=== PATIENT | female | born 1950 | race Caucasian/White ===

== ENCOUNTER 2020-10-24 09:16 | Outpatient (REF) | payer OTHER, SELFPAY ==
--- NOTE | 2020-10-24 09:36 | MHC.AU.P13 ---
Hearing Instrument Maintenance Date of Visit: 10/24/20 Right Ear: [employer] Agent Team Member: [employer] Model: OPN 3 miniRITE T Serial Number: [id number] Repair Warranty: Loss and Damage Warranty: Battery Size: 312 Type of Dome: 8mm closed Follow-Up Summary: Right aid brought in for cleaning. Cleaned aid, changed wax guard, 8mm closed dome, and retention tail - amplifying clearly. Recommendations: Recommendations: Hearing instrument follow-up or maintenance as needed. Signature: Provider: MICHAEL Meade
== END 2020-10-24 09:17 | disposition home or self-care (01) ==
LOC: HO.HAP 09:16
PROVIDERS: Visit Provider Internal Medicine
DX: Z46.1 Encounter for fitting and adjustment of hearing aid (principal); H90.5 Unspecified sensorineural hearing loss
CPT/HCPCS: V5266

== ENCOUNTER 2020-10-24 09:32 | Outpatient (REF) | payer SELFPAY | END 2020-10-24 09:33 | disposition home or self-care (01) | LOC: HO.HAP 09:32 | PROVIDERS: Visit Provider Internal Medicine | DX: Z46.1 Encounter for fitting and adjustment of hearing aid (principal); H90.3 Sensorineural hearing loss, bilateral | CPT/HCPCS: V5267 ==

== ENCOUNTER 2020-11-11 08:19 | Outpatient (REF) | payer OTHER, SELFPAY ==
--- NOTE | 2020-11-11 11:32 | MHC.AU.AHA ---
Adult Audiological Evaluation Date of Visit: 11/11/20 Reason for Appointment: Audiological re-evaluation to monitor the status of Ms. Dey's hearing loss. She has a known bilateral, asymmetrical hearing loss with the left ear hearing worse than the right. She uses a hearing aid in the right ear only. She notes that her hearing seems to be gradually decreasing and she notes difficulties hearing the television. Change to her medical history included new medications for restless leg syndrome. Previous Hearing Test Results: [facility], 07/07/2019- Borderline normal to mild hearing loss through 4000 Hz, dropping to a severe hearing loss at 8000 Hz in the right ear. Mild steeply sloping to profound mixed hearing loss in the left ear. Ear History: Ear Infections in Childhood: Both Ears Bothersome Tinnitus/Ringing/Noises in Ears: Intermittent, not typically bothersome Medical History: Medical History: Heart Problems, High Blood Pressure, Stroke Medical History: Heart problems with surgery for dual pacemaker, kidney disease with history of renal failure, two strokes, sinus problems, restless leg syndrome. Allergies: Diltiazem HCl, NSAIDs, pumpkins, strawberries, sulfa drugs Medication List: Reports new medications for restless leg syndrome. Takes Claritin, an inhaler, and nasal spray for sinus problems. Hearing Instrument History- Right Ear: Information Systems Project Manager: [employer] Model: OPN 3 miniRITE T Serial Number: [id number] Battery Size: 312 Repair Warranty: Loss and Damage Warranty: Dispensed By: Dr. Jayshree Inman's office Date of Fitting: ~2017 Otoscopy: Right Ear: Unremarkable Left Ear: Unremarkable Tympanometry: Tympanometry performed due to: Conductive component found in audiometric results Right Ear: Normal Middle Ear System (Type A) Left Ear: Hypercompliant Middle Ear System (Type Ad) Hearing Evaluation: Transducer(s) Used: Insert Earphones, Bone Conduction Method: Conventional Audiometry Stimuli Used: Pure Tones Right Ear: Description of Hearing: Normal hearing at 250-500 Hz, 3775-9027 Hz, and 3000 Hz. Mild sensorineural hearing loss at 750, 2000, and 4000 Hz, steeply sloping to a moderate hearing loss at 6000 Hz and a severe hearing loss at 8000 Hz. Left Ear: Description of Hearing: Normal hearing at 250 Hz. Mild sensorineural hearing loss at 500 Hz, steeply sloping to a severe hearing loss at 750 Hz and a profound mixed hearing loss from 7718-9587 Hz. Speech Recognition Threshold (SRT): Method Used: Monitored Live Voice Stimuli Used: Spondee Words Right Ear: 25 dBHL Left Ear: 75 dBHL with effective masking Word Discrimination: Method: Recorded Lists Word Lists Used: NU-6 Right Ear: 96% at 65 dBHL Left Ear: Attempted at 95 dBHL with masking, 0/10 correct Comparison: Compared to most recent evaluation: Slight 5-10 dBHL decreases in hearing in the right ear. Recommendations: Audiological re-evaluation in one year. Hearing aid(s) reprogrammed with updated test results. Diagnosis: Primary Diagnosis: H90.3 Bilateral Sensorineural Hearing Loss Services Performed: Comprehensive Audiological Evaluation (CPT 89014) Tympanometry (CPT 78134) Signature: Provider: Trevon Germain, CCC-A
== END 2020-11-11 08:20 | disposition home or self-care (01) ==
LOC: HO.SH 08:19
PROVIDERS: Visit Provider Internal Medicine
DX: H90.3 Sensorineural hearing loss, bilateral (principal)
CPT/HCPCS: 92557; 92567; 92592

== ENCOUNTER 2024-05-22 09:14 | Outpatient (AMB) | payer OTHER, SELFPAY ==
--- NOTE | 2024-05-22 09:18 | HO.SPINEOV ---
Vital Signs 05/22/24 10:03 Height 5 ft 3 in Weight 173 lb BMI 30.6 Intake Visit Reasons: LBP Intake Note: Ms. Dey is here today c/o low back pain that radiates down to the legs. 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 Allergies NSAIDS (Non-Steroidal Anti-Inflamma Allergy (Severe, Verified 05/22/24 10:08) Unresponsive Diltiazem HCl Allergy (Unknown, Uncoded 05/22/24 10:08) Unknown nsaids Allergy (Unknown, Uncoded 05/22/24 10:08) Unknown pumpkins Allergy (Unknown, Uncoded 05/22/24 10:08) Unknown strawberries Allergy (Unknown, Uncoded 05/22/24 10:08) Unknown sulfa trimeth ds tablets Allergy (Unknown, Uncoded 05/22/24 10:08) Unknown Physical Exam Vital Signs: BMI result Body Mass Index 30.6 Assessment & Plan Assessment & Plan (1) Chronic SI joint pain: Code(s): M53.3 - Sacrococcygeal disorders, not elsewhere classified; G89.29 - Other chronic pain Category: Medical Plan Dear Dr Paris, Thank you for referring Mrs Dey to our office today. She is a very nice 73-year-old female with history of longstanding pain in her left buttock which radiates around her hip into her anterior groin. It all started when she had her hip replaced about 30 or 40 years ago. After that surgery she has always noticed she has had the pain. She will have to put her hand underneath the left buttock to support the area at times if she is sitting for any length of time or walking. She does not have any pain shooting down her leg. She did undergo transforaminal lumbar interbody fusion with thinking that this could be some kind of atypical radiculopathy but it did not help the pain at all. She saw him postoperatively and he said that the films all looked okay. She is frustrated with her quality of life she has been dealing with this for many decades. She has done physical therapy at [facility]. She also underwent numerous rounds of injections. I can see from the office notes that were provided, she had SI joint injections, various nerve blocks as well as lateral branch blocks. The patient can not recall any of these injections having any meaningful or lasting effect on this pain. PMH: She has extensive medical history, history of hypertension, some kind of arrhythmia that resulted in her needing a pacemaker, history of goiter with resection, anxiety attacks, AFib on Eliquis, vertigo, kidney disease with renal failure, hip replacement, shoulder replacement, right knee replacement, constipation Social hx: She does smoke, has intermittently smokes since since she was in her 30s, occasional alcohol, no recreational drugs Medications: Diltiazem, gabapentin, loratadine, losartan, vitamin-D, flecainide, ropinirole, omeprazole, albuterol, MiraLax, Lasix, fenofibrate, alprazolam, potassium, pravastatin, Aspercreme, Eliquis, fluticasone Allergies: Please see the Prescient list Physical exam: She is awake alert oriented she walks with a walker, she is very slow to stand up but is able to do so independently, when asked to localize where her pain is, she points directly to her left buttock. She is able to show me a large left buttock incision that extends down into her lateral hip region. This is exactly where the pain starts. She does have positive TRICIA testing but it is more than anything a reduction in range of motion that gives her tension in the area of the left buttock. Gross motor movements and reflexes are normal. Imaging review: She had multiple lumbar x-rays at [facility] the done and brought with her here today, showing evidence of interbody cage and bilateral pedicle screw and eddie placement which all appears to be in good position. There is an old interlaminar device that is still in place as well. Impression: 73-year-old female with history of 30-40 years of pain in her left buttock going into her anterior groin that started right after her hip replacement. She is here today to be evaluated for her SI joint. She has undergone numerous rounds of injections including the SI joint lateral branch blocks but the patient is certain that none of it has given her any relief even temporarily. She can localize her pain very well to right where the incision is from her previous hip replacement. I am not sure if she has some kind of scar tissue in the gluteal muscle or something like this that gives her pain in that area. If she puts her hand on the area and pushes, it makes it more comfortable to sit or to walk. Typically Dr. De Oliveira would offer patient's SI joint fusion if she had tremendous response to the SI joint injections. Unfortunately this is just not the case. It seems that this all started with her left hip replacement but she has been told that all the hardware looks okay. Unfortunately I do not think we have anything we can offer her to help with this discomfort. Thank you for allowing us to care for your patient. The total time spent with this visit with this patient was 45 minutes reviewing history, physical exam, lumbar imaging review, and implementation of treatment plan or further diagnostic testing Yunior De Oliveira MD,PhD [facility] Coding Level of Care Code New Pt Level 4 (11711) Diagnoses Chronic SI joint pain M53.3; G89.29
--- OUTSIDE RECORDS SUMMARY | 2024-05-22 09:33 | XMS_ITS | Encounter Summary ---
Author Organization [facility] Address [address] [facility] [address] [place] [address] Phone Care Team Providers Care Blending Machine Feeder Name Role Phone Clara Corrales MD Primary Care Provider Encounter Details Date Type Department Care Team (Late st Contact Info) Description 06/15/2022 Telephone [facility] [address] [facility] [address] [place] [address] Betsey Sherman MA Social History Tobacco Use Types Packs/Day Years Used Date Smoking Tobacco: Every Day Smokeless Tobacco: Current Alcohol Use Standard Drinks/Week Comments Yes 0 (1 standard drink = 0.6 oz pure alcohol) Alcoholic Drinks/day: Occasional social drink Comments Unknown Sex and Gender Information Value Date Recorded Sex Assigned at Not on file Legal Sex Female 4:49 PM EST Gender Identity Not on file Sexual Orientation Not on file documented as of this encounter Miscellaneous Notes * Telephone Encounter - Betsey Sherman MA - 06/15/2022 9:52 AM EST Pt called she has a CT scan coming up and would like to know if its ok for her to get contrast doen. Please advise Thank you CB# [phone] documented in this encounter Plan of Treatment Upcoming Encounters Date Type Department Care Team (Late st Contact Info) Description 12/21/2024 1:00 PM EDT Office Visit [facility] [address] [place] [address] Lenin Monique MD [address] [facility] [address] [place] [address] documented as of this encounter Visit Diagnoses Not on filedocumented in this encounter Care Teams Blending Machine Feeder Relationship Specialty Start Date End Date Clara Corrales MD [address] [facility] [address] [place] [address] PCP - General Internal Medicine 06/17/23 documented as of this encounter
--- OUTSIDE RECORDS SUMMARY | 2024-05-22 09:33 | XMS_ITS | Clinical Summary ---
Author Organization [facility] Address [address] [place] [address] Phone Care Team Providers Care Flight Follower Name Role Phone Clara Corrales MD Primary Care Provider [phone] Allergies Active Allergy Reactions Criticality Noted Date Comments Iodinated Contrast Media 01/07/2023 Other reaction(s): has kidney disease so cant take contrast dye Patient has kidney disease and dual pacemaker Metoprolol 01/07/2023 Other reaction(s): rash Nsaids 01/07/2023 Other reaction(s): cannot take because of kidney disease Other 01/07/2023 Other reaction(s): allergic to strawberries and pumpkin-rash and throat swells. pumpkin [facility] (Diagnostic) 01/07/2023 Other reaction(s): rash and throat closes Sulfa Antibiotics Other (see comments) 09/12/2020 Medications ALPRAZolam (XANAX) 1 MG tablet Take 1 tablet by mouth 2 (two) times a day Active flecainide (TAMBOCOR) 100 MG tablet Take 1 tablet by mouth 2 (two) times a day Active gabapentin (NEURONTIN) 300 MG capsule Take 30 mg by mouth if needed Active pravastatin (PRAVACHOL) 40 MG tablet Take 1 tablet by mouth 1 (one) time each day Active fluticasone (FLONASE) 50 MCG/ACT nasal spray Administer 1 spray into each nostril 1 (one) time each day Active loratadine (CLARITIN) 10 MG tablet Take 10 mg by mouth 1 (one) time each day Active senna-docusate (PERICOLACE) 8.6-50 MG per tablet Take 2 tablets by mouth 1 (one) time each day Active albuterol HFA (PROVENTIL HFA;VENTOLIN HFA) 108 (90 Base) MCG/ACT inhaler Inhale 2 puffs if needed for wheezing Active losartan (Cozaar) 25 MG tablet Take 1 tablet (25 mg total) by mouth 1 (one) time each day 90 tablet 3 2 Active potassium chloride (MICRO-K) 10 MEQ CR capsule 3 Active rOPINIRole (REQUIP) 0.5 MG tablet 3 Active omeprazole (PriLOSEC) [address] capsule 3 Active dilTIAZem CD (CARDIZEM CD) 180 MG 24 hr capsule 3 Active Cholecalciferol (Vitamin D3) 25 MCG (1000 UT) capsule 3 Active cephalexin (KEFLEX) 500 MG capsule 3 Active furosemide (LASIX) 40 MG tablet 1 tablet (40 mg total) 1 (one) time each day 90 tablet 3 3 Active apixaban (Eliquis) 5 MG tablet Take 5 mg by mouth in the morning and 5 mg in the evening. Active oxyCODONE-aceta minophen (PERCOCET) 5-325 MG per tablet if needed Active Active Problems Problem Noted Date Diagnosed Date Cardiac pacemaker in situ 01/07/20232022 Neck pain 01/07/2023 01/07/2023 Obese class II 01/07/2023 01/07/2023 Sick sinus syndrome 01/07/2023 01/07/2023 Hypo-osmolality and hyponatremia 04/09/2022 Proteinuria 09/12/2020 Stage 3a chronic kidney disease 09/12/2020 Chronic kidney disease stage 2 09/12/2020 Hyperparathyroidism due to renal insufficiency 0 09/12/2020 Hypertensive renal disease 09/12/2020 Smoker 09/12/2020 Vitamin D deficiency 09/12/2020 Stroke Immunizations Name Administration Dates Next Due Pneumococcal Polysaccharide 06/16/2013 Family History Medical History Relation Comments Cancer Father Heart disease Mother Hypertension Mother Kidney disease Sibling 1 Heart disease Sibling 2 Relation Status Comments Father Mother Sibling 1 Sibling 2 Social History Tobacco Use Types Packs/Day Years Used Date Smoking Tobacco: Every Day Smokeless Tobacco: Current Tobacco Cessation:Ready to Q uit: Not Asked; Counseling Given: No Alcohol Use Standard Drinks/Week Comments Yes 0 (1 standard drink = 0.6 oz pure alcohol) Alcoholic Drinks/day: Occasional social drink Comments Unknown Sex and Gender Information Value Date Recorded Sex Assigned at Not on file Legal Sex Female 4:49 PM EST Gender Identity Not on file Sexual Orientation Not on file Last Filed Vital Signs Vital Sign Reading Time Taken Comments Blood Pressure 104/49 12/23/2023 12:38 PM EDT Pulse 60 12/23/2023 12:38 PM EDT Temperature - - Respiratory Rate - - Oxygen Saturation - - Inhaled Oxygen Concentration - - Weight 81.2 kg (179 lb) 12/23/2023 12:38 PM EDT Height 162.6 cm (5' 4 ) 05/24/2020 12:00 PM EST Body Mass Index 30.73 05/24/2020 12:00 PM EST Plan of Treatment Upcoming Encounters Date Type Department Care Team (Late st Contact Info) Description 12/21/2024 1:00 PM EDT Office Visit [facility] [address] [place] [address] Lenin Monique MD [address] [phone] Health Maintenance Due Date Last Done Comments Breast Cancer Screening 1950 Colorectal Cancer Screening: Annual FOBT 11/13/1999 Colorectal Cancer Screening: Colonoscopy 11/13/1999 Colorectal Cancer Screening: Sigmoidoscopy 11/13/1999 Pneumococcal Vaccine: 65+ Ye ars (2 of 2 - PCV) 06/16/2014 06/16/2013 Influenza Vaccine (#1) 2023 Hepatitis B Vaccine Aged Out No longe r eligible based on patient's age to complete this topic Insurance [facility] ([id number]) [facility] ([id number]) Care Teams Flight Follower Relationship Specialty Start Date End Date Clara Corrales MD [address] [place] [phone] PCP - General Internal Medicine 06/17/23
[2024-05-22 10:03] VITALS: BMI 30.6
== END 2024-05-22 11:17 | disposition home or self-care (01) ==
PROVIDERS: PCP Internal Medicine; Referring Provider Physical Medicine & Rehabilitation; Visit Provider Physician Assistant
DX: M53.3 Sacrococcygeal disorders, not elsewhere classified (principal); G89.29 Other chronic pain
CPT/HCPCS: 99204

== ENCOUNTER → 2024-05-22 09:14 | Outpatient (BNVA) | payer OTHER, SELFPAY | PROVIDERS: PCP Internal Medicine; Referring Provider Physical Medicine & Rehabilitation; Visit Provider Physician Assistant | DX: M53.3 Sacrococcygeal disorders, not elsewhere classified (principal); G89.29 Other chronic pain | CPT/HCPCS: 99202 ==

== ENCOUNTER 2024-09-25 08:28 | Day surgery (SDC) | payer OTHER, SELFPAY ==
--- OUTSIDE RECORDS SUMMARY | 2024-08-04 09:54 | XMS_ITS | Data Portability ---
Author Organization [facility] Address [address] [place] [address] Care Team Providers Care Donor Relations Associate Name Role Phone HIM CCA OTHER Assessment Encounter Date Assessment Date Assessment LastModified by Organization Details LastModified Time 08/09/2022 08/09/2022 I have reviewed and agree with the assessment and plan as documented by the vocational rehabilitation supervisor. I provided real-time medical direction for this encounter and was immediately available to provide additional phone-based assistance as needed. 71F with history of URI, recently on amoxicillin, presents with ongoing cough, wheezing. Pt with no fever. No difficulty breathing. Vitals reveal no acute findings, no fever noted. Respiratory exam reveals significant coughing, no obvious wheezing. Suspect asthma exacerbation secondary to URI. Will proceed with Duoneb and prednisone x 5 days. Strict return precautions and red flags discussed with patient. paysola Not available 08/09/2022 21:14:04 05/02/2023 05/02/2023 I have reviewed and agree with the assessment and plan as documented by the vocational rehabilitation supervisor. I provided real-time medical direction for this encounter and was immediately available to provide additional phone-based assistance as needed. 72F with history of recent cough, URI symptoms. No fever, no SOB, no wheezing. No difficulty breathing. Vitals reveal no acute findings, no fever noted. Respiratory exam reveals no acute findings. Recommend supportive care, and OTC meds, including increase fluids/saline rinses. Strict return precautions and red flags discussed with patient. paysola Not available 05/02/2023 17:20:10 10/11/2023 10/11/2023 I provided real -time medical direction via phone for this encounter and was available for additional phone-based assistance as needed. I have reviewed and agree with the Assessment and Plan as documented by the Account Services Analyst. Patient given the opportunity to ask questions. Our service contacted for an assessment of: Pain after fall As per above, patient with recurrent falls and now has whole-body pain in addition to the pain she experienced after the fall on her left side. Can ambulate after the fall and has no deficit. Is unable to take nonsteroidals and Toradol. Already taking Tylenol. Per vocational rehabilitation supervisor on the scene, vital signs are stable and there is no distress. No evidence of bleeding or significant trauma on exam Impression: Acute on chronic pain status post fall Plan: Unable to take nonsteroidals and Toradol. Already taking Tylenol. Encouraged follow-up with PCP. We discussed the diagnostic uncertainty of home visits and the risk associated with this. In this case, the patient and I felt this to be an acceptable and reasonable amount of risk given the benefit of avoiding an ED visit. We discussed the need to seek care urgently/emergentl y in the setting of any new or worsening serious symptoms, particularly fever chills lightheadedness altered mental status [email or web address] Not available 10/11/2023 21:26:54 Plan of Treatment Reminders Order Date Submit Date Provider Last Modified By Organization Details Last Modified Time Details Appointments None recorded. Lab None recorded. Referral None recorded. Procedures None recorded. Surgeries None recorded. Imaging None recorded. Medication Orders prednisone 20 mg tablet 2022 023 [id number], [address] [place], [place], [phone], 3 21:14:12 benzonatate 200 mg capsule 2022 023 [facility] #[id number], [address] [place], [place], [phone], 3 16:04:43 Robitussin ER 30 mg/5 mL oral suspension, extended release 2022 023 [facility] #[id number], [address] [place], [place], [phone], 3 16:46:56 Patient TargetsNo targets recorded. Patient InstructionsNo instructions recorded. Reason for Referral None Reported. Medical Equipment None Reported. Allergies Allergen ID Allergen Name Allergen Category Reaction Reaction Severity Criticality Documentation Date Start Date Code Code System Note Provider Name and Address Organization Details Recorded Time 8277 metoprolo l Not available Not available Not available Not available 02/15/2024 6918 RxNorm Not Available [facility] 4 03:43:12 Medications Name Sig Start Date Stop Date Status Note LastModified by Organization Details LastModified Time quetiapine 25 mg tablet active Not Available Not Available No t Available gabapentin 600 mg tablet active Not Available Not Available No t Available nicotine 14 mg/24 hr daily transdermal patch active Not Available Not Available Not Available pravastatin 40 mg tablet active Not Available Not Available No t Available diltiazem CD 180 mg capsule,extende d release 24 hr active Not Available Not Availa ble Not Available alprazolam 1 mg tablet active Not Available Not Available Not Available benzonatate 200 mg capsule Take 1 capsule every 8 hours as needed for cough 2022 active Not Available Not Available Not Avai lable hydrocodone 5 mg-acetaminophe n 325 mg tablet active Not Available Not Availa ble Not Available prednisone 20 mg tablet Take 3 tablets every day by oral route for 5 days. active Not Available Not Available No t Available oxycodone-aceta minophen 5 mg-325 mg tablet active Not Available Not Available Not Available amoxicillin 875 mg tablet active Not Available Not Available No t Available trazodone 100 mg tablet active Not Available Not Available No t Available ropinirole 0.25 mg tablet active Not Available Not Available No t Available Ear Wax Removal Drops 6.5 % active Not Available Not Available Not Available baclofen 10 mg tablet active Not Available Not Available Not Available cephalexin 500 mg capsule active Not Available Not Available N ot Available ropinirole 0.5 mg tablet active Not Available Not Available No t Available losartan 25 mg tablet active Not Available Not Available Not Available flecainide 100 mg tablet active Not Available Not Available No t Available omeprazole 20 mg capsule,delayed release active Not Available Not Available Not Available aspirin 81 mg chewable tablet active Not Available Not Availa ble Not Available diltiazem CD 120 mg capsule,extende d release 24 hr active Not Available Not Availa ble Not Available methylprednisol one 4 mg tablets in a dose pack active Not Available Not Available No t Available albuterol sulfate HFA 90 mcg/actuation aerosol inhaler active Not Available Not Availa ble Not Available losartan 50 mg-hydrochlorot hiazide 12.5 mg tablet active Not Available Not Available Not Available fluticasone propionate 50 mcg/actuation nasal spray,suspensio n active Not Available Not Available Not Available loratadine 10 mg tablet active Not Available Not Available No t Available amoxicillin 875 mg-potassium clavulanate 125 mg tablet active Not Available Not Available No t Available oxycodone 5 mg tablet TAKE 1 TABLET BY MOUTH EVERY 6 HOURS NEEDED FOR SEVERE PAIN active Not Available Not Available No t Available cholecalciferol (vitamin D3) 25 mcg (1,000 unit) capsule active Not Available Not Availabl e Not Available fenofibrate 160 mg tablet active Not Available Not Available No t Available pregabalin 75 mg capsule active Not Available Not Available N ot Available diclofenac 1 % topical gel active Not Available Not Available Not Available Stimulant Laxative Plus 8.6 mg-50 mg tablet active Not Available Not Available Not Available Robitussin ER 30 mg/5 mL oral suspension,exte nded release Take 10 mL by mouth every 12 hours as needed for cough 2022 active Not Available Not Available Not Avai lable BinaxW COVID-19 Ag Self Test kit active Not Available Not Availabl e Not Available Vitals Date Recorded Respiratory rate Heart rate Body temperature Oxygen saturation Oxygen saturation in Arterial blood by Pulse oximetry Body weight Body height Systolic blood pressure Diastolic blood pressure Provider Name and Address Organization Details Last Updated DateTime 4 16 /min 74 /min 97.8 [degF] 97 % 97 % 66589.3 76 g 160.02 cm 115 mm[Hg] 77 mm[Hg] Not Available [facility] 4 17:18:05 Date Recorded Heart rate Body weight Respiratory rate Oxygen saturation Oxygen saturation in Arterial blood by Pulse oximetry Body height Body temperature Systolic blood pressure Diastolic blood pressure Provider Name and Address Organization Details Last Updated DateTime 4 76 /min 78496.6 4 g 16 /min 96 % 96 % 160.02 cm 98.1 [degF] 140 mm[Hg] 80 mm[Hg] Not Available [facility] 4 21:24:10 Date Recorded Heart rate Respiratory rate Oxygen saturation Oxygen saturation in Arterial blood by Pulse oximetry Body temperature Systolic blood pressure Diastolic blood pressure Provider Name and Address Organization Details Last Updated DateTime 2 63 /min 18 /min 96 % 96 % 98.6 [degF] 114 mm[Hg] 62 mm[Hg] Not Available [facility] 2 19:53:01 Date Recorded Respiratory rate Body temperature Oxygen saturation Oxygen saturation in Arterial blood by Pulse oximetry Heart rate Systolic blood pressure Diastolic blood pressure Provider Name and Address Organization Details Last Updated DateTime 3 18 /min 99 [degF] 98 % 98 % 88 /min 141 mm[Hg] 76 mm[Hg] Not Available [facility] 3 15:52:54 Date Recorded Oxygen saturation Oxygen saturation in Arterial blood by Pulse oximetry Heart rate Body temperature Respiratory rate Respiratory rate Heart rate Oxygen saturation Oxygen saturation in Arterial blood by Pulse oximetry Body temperature Systolic blood pressure Diastolic blood pressure Systolic blood pressure Diastolic blood pressure Provider Name and Address Organization Details Last Updated DateTime 3 96 % 96 % 61 /min 98 [degF] 18 /min 18 /min 61 /min 96 % 96 % 98 [degF] 145 mm[Hg] 76 mm[Hg] 145 mm[Hg] 76 mm[Hg] Not Available [facility] 3 21:08:30 Social History None recorded. Functional Status None recorded. Mental Status None recorded. Family History Nothing Reported. Medical History No medical history recorded. Gynecological HistoryNo gynecological history recorded. Obstetrics History GPAL:G 0 P 0 0 0 0 Past Encounters Encounter ID Performer Location Encounter Start Date Encounter Closed Date Diagnosis/Indication Diagnosis SNOMED-CT Code Diagnosis ICD10 Code Diagnosis Note [id number] Leah Louis MD [facility] [address] [place] [id number] 01/29/2022 19:52:52 01/30/2022 12:56:48 Palpitations 12444576 R00.2 71y F with a fib and recent discharge 01/18 for a fib presenting w intermitte nt palpitatio ns that started earlier today. VSS including during an episode of perceived palpitatio ns. EKG shows mildly prolonged UT but patient being paced. No associated concerning sxs like chest pain or shortness of breath or dizziness. No recent sxs to suggest dehydratio n or surgeries/ trauma to suggest PE. Seen by cardiology this past week. Has f/u w PCP on 02/06. Recommend PCP office reach out to patient in next few days if able to confirm resolution of symptoms and to keep outpatient appt on 02/06. [id number] Brandy Martinez MD [facility] [address] [place] [id number] 05/23/2022 15:52:52 05/25/2022 12:29:14 Acute viral bronchitis 553969392 J20.8 Pt endorsing 6-7 days of productive cough, sinus congestion , and dyspnea. No fevers/sic k contacts. Cough is worse w/ lying flat and some peripheral edema which is common for her when she sits a lot. COVID and flu negative today. VS reassuring . Overall most c/w viral bronchitis that is circulatin g in community now. DDx includes new CHF thus if no improvemen t in 3 days would recommend CXR to evaluate for pulm edema as well as bacterial PNA. Recommend symptomati c mgmt w/ tessalon pearls or Robitussin , nasal saline, APAP. Red flag symptoms reviewed, pt instructed to call 911 if condition worsens or new symptoms develop, pt expressed understand ing. I have reviewed and agree with the assessment and plan as documented by the vocational rehabilitation supervisor. I provided real time medical direction for this encounter and was immediatel y available to provide additional phone based assistance as needed. [id number] Tori Sarabia MD [facility] [address] [place] [phone] 08/09/2022 21:02:38 08/11/2022 10:12:33 Cough [id number] R05.9 [id number] Tori Sarabia MD [facility] [address] [place] [phone] 05/02/2023 17:17:55 05/03/2023 17:40:03 Viral upper respiratory tract infection 937660442 J06.9 [id number] Blanca Guzman MD [facility] [address] [place] [id number] 10/11/2023 21:24:05 10/11/2023 21:40:52 Pain 81126535 R52 Fall W19.XXXA Health Concerns Section Related Observation LastModified by Organization Detai ls LastModified Time None Recorded Concern Status LastModified by Organization Details LastModified Time None Recorded Advance Directives Directive None Recorded Payers Encounter Date Sequence Insurance Name Policy Number Policy Ricardo Covered Member ID Ricardo Member ID Guarantor Name 01/29/2022 1 [facility] [employer] - DOS PRIOR TO 2022 - DUAL ELIGIBLE (MEDICARE REPLACEMENT/ADV ANTAGE - HMO) Huong Yissel [id number] Huong Yissel 05/23/2022 1 [facility] [employer] - DOS PRIOR TO 2022 - DUAL ELIGIBLE (MEDICARE REPLACEMENT/ADV ANTAGE - HMO) Huong Yissel [id number] Huong Yissel 08/09/2022 1 [facility] - DOS PRIOR TO 2022 - DUAL ELIGIBLE (MEDICARE REPLACEMENT/ADV ANTAGE - HMO) Huong Yissel [id number] Huong Yissel 05/02/2023 1 [facility] [employer] - DOS ON OR AFTER 2022 - DUAL ELIGIBLE - ALF OPTIONS AND ONE CARE (MEDICARE REPLACEMENT/ADV ANTAGE - HMO) Huong Yissel [id number] Huong Yissel 10/11/2023 1 [facility] - DOS ON OR AFTER 2022 - DUAL ELIGIBLE - ALF OPTIONS AND ONE CARE (MEDICARE REPLACEMENT/ADV ANTAGE - HMO) Huong Yissel [id number] Huong Yissel Notes Date Note Type Note Provider Name and Address Organization Details Recorded Time 01/29/2022 text/html [facility] Nursing Assessment: Denies: Palpitations, feeling dizzy Chest pain, increased fatigue CHF history, increased swelling and edema Weakness/tachycard ia Chief Complaints: Chest PainPMH: Heart DiseaseAllergies: OtherComments: Member was d/c from the hospital on 01/18 for afib . Member was put on medication . Member was unsure what kind, Member feeling weak and dizzy, unsure if she went back into afib, is feeling a flutter . Member also had a flu shot so unsure if it was a reaction . Member denies sob/ CP Allergies NSAIDS / VMC HPI:Recently discharged from hospital 01/18 for afib, started diltiazem 125mg daily. no issues until today - intermittent palpitations 2-3 hours. no chest pain, no dizziness, no shortness of breath. but palpitations felt similar to those leading up to hospitalization.sh e's paced, pulse in the 60s. really doesn't want to go back to hospital. No dysuria, diarrhea, frequency, diarrhea, fevers. Reporting being very busy. taking diltiazem every day. she saw cardiology last week and next fu is w PCP is 02/06 Leah Louis MD [address] [facility],[address], [place], [phone], [employer] 01/29/2022 20:04:11 05/23/2022 text/html [facility] Nursing Assessment: Chief Complaints: Cough PMH: Heart Disease Allergies: Unknown Comments: Pt reports feeling unwell x3 days - Productive cough and headache -Body aches - Denies fever and chills, Denies SOB/CP, Denies N/V .................. .................. .................. .................. .................. .................. .................. ............... Account Services Analyst Note From Karen Jimenez: Pt found garcia to baseline in home walking to answer the door. Pt presented normal skin temp, tone and condition wit patent airway and normal respirations. pt tested negative for COVID and PLU. Lung sounds clear in all calderon. Pt reports intermittent productive cough when laying down over the last week. Pt reports tender sinus and runny nose. denied SOB, CP, N/V/D, fever and chills. Pt given prescription for cough suppressant sent to pharmacy and encourage to follow up if she has acute fevers or if symptoms last for 3-4 more days. .................. .................. .................. .................. .................. .................. .................. ............... Disposition: Fulfilled Brandy Martinez MD [address] [facility], [place], [phone], [facility] 05/23/2022 16:46:54 08/09/2022 text/html [facility] Nursing Assessment: Patient Reports: Cough, fever greater than 2 days ; History of asthma, increased use of inhaler Chief Complaints: Cough, URI, UTI/Pyelonephritis PMH: Heart Disease Comments: Member calling to request [facility] visit for eval URI symptoms x 2 weeks states recent Rx with abx, inhalers and cough med without relief Deny fever/chills. Also concern for dysuria 4 days. Verify member name/- Tori Sarabia MD [address] [place] [address],[address], [place], [phone], [facility] 08/09/2022 21:14:19 05/02/2023 text/html [facility] Nurse Triage Notes (Desi Barragan): Reason For Request: URI Chief Complaints: URI PMH: Heart Disease, Hypertension, CHF, Other Allergies: Unknown Comments: Member went to the Dr on 04/22 for a fall and was tested for a CMP and was found to have low K+. Member has had URI since then. Member has been taking cough medicine OTC. Member feels it has not worked , then took nyquil / day and night. Member has cough/ congestion clear. Member does not have fever/ chill. PMH > Dual pacemaker/afib ( eliquis) High Chol/ Kidney dis .................. .................. .................. .................. .................. .................. .................. ............... Account Services Analyst Note From Yayo Gutierrez: Pt reports almost two weeks of cough producing clear/white sputum. Pt denies CP, SOB, GUILLAUME, f/n/v/d. Pt taking day/nyquil with no relief. No hx of asthma/copd. Pt is alert, NAD. VSS. Afebrile. Non focal neuro exam. Normal gait. Normal ENT exam. Lungs CTA. Benign ABD exam. No LE edema. Rapid covid, flu and strep negative. Pt instructed to continue the Flonase bid, add mucinex bid, benzocaine lozenges and saline nasal spray throughout the day. .................. .................. .................. .................. .................. .................. .................. ............... Disposition: Miles Sarabia MD [address] [place] [address],[address], [place], [phone], [facility] 05/02/2023 17:22:15 10/11/2023 text/html [facility] Nurse Triage Notes (Hilary Oneil): Reason For Request: Fall on Wednesday, unrelieved pain Denies: Falls with head strike and LOC Falls with inability to move post fall Chief Complaints: Pain PMH: Heart Disease, Hypertension, CHF, Other Allergies: Metoprolol Pain Assessment: Level 8 out of 10 Comments: 72 year old with PMH: HTN, CHF, Heart disease, Afib, Pacer, Allergies, CKD, takes Eliquis, Spinal Surgery, Lumbar and Sciatica last year.Allergies to Tramadol, Metoprolol, Naproxen. c/o pain to neck/left elbow, left side, left hip. Reporting she had a fall on Wednesday, fell to left side, tripped on a stair.Taking 600 mg Gabapentin with no effect throughout the weekend, unable to get an appointment w/ her PCP, also has an appointment w/ her Spine Surgeon on Wednesday. Denies any severe pain that would indicate fractures.Denies any other complaints. Reporting decreased ROM to left arm.Liban VO .................. .................. .................. .................. .................. .................. .................. ............... Account Services Analyst Note From Yunior Cotto: [facility] note 72 year old with PMH: HTN, CHF, Heart disease, Afib, Pacer, Allergies, CKD, takes Eliquis, Spinal Surgery, Lumbar and Sciatica last year.Allergies to Tramadol, Metoprolol, Naproxen. c/o pain to neck/left elbow, left side, left hip. Reporting she had a fall on Wednesday, fell to left side, tripped on a stair.Taking 600 mg Gabapentin with no effect throughout the weekend, unable to get an appointment w/ her PCP, also has an appointment w/ her Spine Surgeon on Wednesday. Denies any severe pain that would indicate fractures.Denies any other complaints. Reporting decreased ROM to left arm. 72 year old F c/o pain post fall.Fell Wednesday10/08/23, landing on left side, and is not c/o pain on her left side. Pt denies SOB, CP, N/V/D. Pt c/o neck pain, left flank pain, left shoulder, to hip, then radiates down left leg. Pt reports she has checked herself and there is no bleeding in her urine and no bruising on her body but believes she may have internal bruising. Pt has had spinal surgery for spinal stenosis. Pt is on 600mg Gabapentin, for past pain issues, and reports it is not helping at all. Pt reports she is on Tylenol already and cannot take ibuprofen or Toradol. Pt reports heat or cold does not help. Pt reports slight decrease in ROM due to pain and needs to walk slower because of it. MD Consult:Eziocordell raygoza, due to pt's allergies, and/or renal disease, we are unable to Rx anything for the pn.MD advised keeping Wed's appointment and if pain worsened or pt needs pain relief to seek care from urgent care or ER.Discussed red flags with pt. .................. .................. .................. .................. .................. .................. .................. ............... Disposition: Miles Guzman MD [address] [facility],[address], [place], [phone], [facility] 10/11/2023 21:27:07 OBGyn Episode No OBEpisode recorded.
--- OUTSIDE RECORDS SUMMARY | 2024-08-04 09:54 | XMS_ITS | Encounter Summary ---
Author Organization [facility] Address [address] [facility] [address] [place] [address] Phone Care Team Providers Care Substation Operator Helper Generation Name Role Phone Clara Corrales MD Primary Care Provider Encounter Details Date Type Department Care Team (Late st Contact Info) Description 06/15/2022 Telephone [facility] [address] [place] [address] Betsey Sherman [place] Social History [...] contrast doen. Please advise Thank you CB# [phone] documented in this encounter Plan of Treatment Upcoming Encounters Date Type Department Care Team (Late st Contact Info) Description 12/21/2024 1:00 PM EDT Office Visit [facility] [address] [place] [address] Lenin Monique MD [address] [facility] [address] [place] [address] documented as of this encounter Visit Diagnoses Not on filedocumented in this encounter Care Teams Substation Operator Helper Generation Relationship Specialty Start Date End Date Clara Corrales MD [address] [facility] [address] [place] [address] PCP - General Internal Medicine 06/17/23 documented as of this encounter
--- OUTSIDE RECORDS SUMMARY | 2024-08-04 09:54 | XMS_ITS | Clinical Summary ---
Author Organization [facility] Address [address] [place] [address] Phone Care Team Providers Care Line Cook Name Role Phone Clara Corrales MD Primary Care Provider Allergies Active Allergy Reactions Criticality Noted Date Comments Iodinated Contrast Media 01/07/2023 Other reaction(s): has kidney disease so cant take contrast dye Patient has kidney disease and dual pacemaker Metoprolol 01/07/2023 Other reaction(s): rash Nsaids 01/07/2023 Other reaction(s): cannot take because of kidney disease Other 01/07/2023 Other reaction(s): allergic to strawberries and pumpkin-rash and throat swells. pumpkin [place] (Diagnostic) 01/07/2023 Other reaction(s): rash and throat [...] 09/12/2020 Vitamin D deficiency 09/12/2020 Stroke Immunizations Immunization Administration Dates Next Due Pneumococcal Polysaccharide 06/16/2013 [...] [facility] [address] [place] [address] Lenin Monique MD [address] [phone] Health Maintenance Due Date Last Done Comments Breast Cancer Screening 1950 Colorectal Cancer Screening: Annual FOBT 11/13/1999 Colorectal Cancer Screening: Colonoscopy 11/13/1999 Colorectal Cancer Screening: Sigmoidoscopy 11/13/1999 Pneumococcal Vaccine: 50+ Ye ars (2 of 2 - PCV) 06/16/2014 06/16/2013 Influenza Vaccine (Season Ended) 2024 Pneumococcal Vaccine: Peds ( 0 to 5 Years) and At-Risk Patients (6 to 49 Years) Discontinued 06/16/2013 Hepatitis B Vaccine Aged Out No longe r eligible based on patient's age to complete this topic Insurance [facility] ([id number]) [facility] ([id number]) Care Teams Line Cook Relationship Specialty Start Date End Date Clara Corrales MD [address] [place] [phone] PCP - General Internal Medicine 06/17/23
[2024-09-20 14:27] VITALS: BMI 30.6
--- NOTE | 2024-09-22 09:42 | HO.ANESPROP2 ---
HPI - Anesthesia Eval Consult details Narrative: 73yo F for Right Cataract Extraction IOL Insertion No previous cataract on record Follows [facility] cardiology. Last office visit 09/2024 - referral to EP for possible ablation for afib after cataracts. Otherwise stable, asymptomatic, euvolemic Afib: jailynis Pacer in situ: Interrogated 05/2024 (3 brief episodes Afib, Apaced 69%) Cardiac testing below [facility] Active Problems Active Problems: All Active Problems Chronic SI joint pain (Acute) Past Medical History Medical History History of cardioversion Chronic low back pain Neck pain HLD (hyperlipidemia) RLS (restless legs syndrome) Smoker Anxiety Cataracts, bilateral A-fib Hx of cardiac pacemaker (~2012) Surgical History Surgical History (Updated 10/04/24 @ 13:58 by Racheal Antunez, GILDA) Hx of right cataract extraction (09/25/24) Hx of spinal surgery History of total right knee replacement (TKR) History of total left hip replacement History of total replacement of left shoulder joint Hx of colonoscopy Social History Social History Are you a primary memory care director to a significant other at home: No Do you presently have visiting nurse or other home services: Yes (DIRECTOR OF CODING 3 x week total of 9.5 hours) Patient Tobacco Use Status: Current everyday Tobacco user Tobacco use type: Cigarette Cigarettes Per Day: 5 Meds Allergies Allergy/AdvReac Type Severity Reaction Status Date / Time NSAIDS (Non-Steroidal Allergy Severe Unresponsiv Verified 09/20/24 14:01 Anti-Inflamma e Sulfa (Sulfonamide Allergy Severe Rash Verified 09/20/24 14:01 Antibiotics) pumpkins Allergy Severe Rash Uncoded 09/20/24 14:01 strawberries Allergy Severe Anaphylaxis Uncoded 09/20/24 14:01 Active Medications: Current Medications Povidone Iodine (Povidone Iodine 5 % Ophth Soln 30 Ml Bottle) 1 appl EYE-RIGHT PREOP PRN PRN Reason: Pre-Op Surgical Implant Prophy Home Medications ?Medication ?Instructions ?Recorded ?Confirmed ?Last Taken ?Type albuterol sulfate 90 mcg/actuation 2 puff inhalation BID PRN 09/20/24 09/25/24 09/25/24 History aerosol inhaler Shortness Of Breath Or Wheezing alprazolam 1 mg tablet 1 mg PO BID 09/20/24 09/25/24 09/25/24 History apixaban 5 mg tablet (Eliquis) 5 mg PO BID 09/20/24 09/20/24 Unknown History diltiazem HCl 180 mg 180 mg PO DAILY 09/20/24 09/25/24 09/25/24 History capsule,extended release 24 hr flecainide 100 mg tablet 100 mg PO BID 09/20/24 09/25/24 09/25/24 History fluticasone propionate 50 2 spray intranasal DAILY 09/20/24 09/20/24 Unknown History mcg/actuation nasal spray,suspension (Flonase Allergy Relief) furosemide 40 mg tablet 40 mg PO DAILY 09/20/24 09/20/24 Unknown History gabapentin 600 mg tablet 600 mg PO BID 09/20/24 09/20/24 Unknown History oxycodone-acetaminophen 5 mg-325 1 tab PO QID PRN Pain 09/20/24 09/20/24 Unknown History mg tablet potassium chloride 10 mEq 10 meq PO DAILY 09/20/24 09/20/24 Unknown History capsule,extended release pravastatin 40 mg tablet 40 mg PO DAILY 09/20/24 09/25/24 09/25/24 History Exam Height,Weight and Vital Signs: Height 5 ft 3 in Weight 78.471 kg Pertinent Lab Results Pertinent Lab Results: Lab ResultsCardiology Labs Blood Count & Diff? COAG? General Chemistry? Cardiac? WBC:?12.6 k/mm3?High (09/12/24) INR: 1.1 (01/14/24) Sodium: 141 mmol/L (09/12/24) Bilirubin, Total: 0.3 mg/dL (09/12/24) RBC: 4.54 m/mm3 (09/12/24) Protime (PT):?11.9 seconds?High (01/14/24) Potassium:?3.5 mmol/L?Low (09/12/24) ? Hgb: 13.7 Gm/dL (09/12/24) APTT: 29.9 seconds (12/06/23) Chloride: 104 mmol/L (09/12/24) ? Hct: 42.8 % (09/12/24) ? Bicarbonate Level: 26 mmol/L (09/12/24) ? MCV: 94.3 femtoliters (09/12/24) ? Anion Gap: 11 mmol/L (09/12/24) ? Platelet Count: 226 k/mm3 (09/12/24) ? Glucose Level:?118 mg/dL?High (09/12/24) ? ? ? BUN: 17 mg/dL (09/12/24) ? ? ? Creatinine-Blood: 0.91 mg/dL (09/12/24) ? ? ? Estimated GFR Creatinine: 67 ML/MIN/1.73 M2 (09/12/24) ? ? ? Calcium: 9.2 mg/dL (09/12/24) ? ? ? Magnesium: 2.1 mg/dL (08/31/24) ? ? ? Protein, Total: 6.6 Gm/dL (09/12/24) ? ? ? Albumin: 3.9 Gm/dL (09/12/24) ? ? ? Alkaline Phosphatase: 70 units/L (09/12/24) ? ? ? AST (SGOT): 14 units/L (09/12/24) ? ? ? ALT (SGPT): 18 units/L (09/12/24) Narrative Narrative: ECGECG 12-Lead ? 14:44:46 Ventricular Rate: 66 BPM Atrial Rate: 66 BPM P-R Interval: 196 ms QRS Duration: 138 ms Q-T Interval: 444 ms QTC Calculation(Bazett): 465 ms P Blackwood: 54 degrees R Blackwood: 132 degrees T Blackwood: 18 degrees Normal sinus rhythm Right bundle branch block Left posterior hemiblock Bifascicular block Abnormal ECG Confirmed ? Signed By: Johnathan Aldrich MD ? ECG 12-Lead ? 14:44:46 Please click on pdf link to open report ? Signed By: Johnathan Aldrich MD Stress Test NM Myocard Perf SPECT Multi ? 07:30:00 Summary No evidence of stress induced ischemia or prior myocardial infarction. Normal left ventricular size and function with no regional wall motion abnormalities. Signatures _ _ ? Signed By: Belkis BAGLEY, Brando EchoEchocardiogram - Complete ? 07:35:10 Summary The left atrium is mildly dilated. The right ventricle is normal in size and function. A right heart pacemaker wire is seen in the right ventricle. The left ventricular size is normal. Left ventricular wall thickness is normal. The LV systolic function is normal . The left ventricular ejection fraction is 55-60 %. There is abnormal septal motion consistent with LBBB or RV pacemaker . Grade I-II, mild to moderate diastolic dysfunction with impaired LV relaxation and increased LA pressure. Comparison Comparison is made to the study of February 05, 2023. There is no significant change. Assessment and Plan Assessment Anesthesia Assessment: Chart Reviewed
--- NOTE | 2024-09-25 08:22 | P.CONAN_ITS ---
[facility] Active Problems Active Problems: All Active Problems Chronic SI joint pain (Acute) Past Medical History Medical History History of cardioversion Chronic low back pain Neck pain HLD (hyperlipidemia) RLS (restless legs syndrome) Smoker Anxiety Cataracts, bilateral A-fib Hx of cardiac pacemaker (~2012) Functional capacity: independent ambulation Patient : No Family History Family history of problems with anesthesia: No Surgical History Surgical History Hx of spinal surgery History of total right knee replacement (TKR) History of total left hip replacement History of total replacement of left shoulder joint Hx of colonoscopy History of Problems with Anesthesia: No Social History Social History Are you a primary technical healthcare consultant to a significant other at home: No Do you presently have visiting nurse or other home services: Yes (INSPECTOR CIRCUITRY NEGATIVE 3 x week total of 9.5 hours) Patient Tobacco Use Status: Current everyday Tobacco user Tobacco use type: Cigarette Cigarettes Per Day: 5 Meds Allergies Allergy/AdvReac Type Severity Reaction Status Date / Time NSAIDS (Non-Steroidal Allergy Severe Unresponsiv Verified 09/20/24 14:01 Anti-Inflamma e Sulfa (Sulfonamide Allergy Severe Rash Verified 09/20/24 14:01 Antibiotics) pumpkins Allergy Severe Rash Uncoded 09/20/24 14:01 strawberries Allergy Severe Anaphylaxis Uncoded 09/20/24 14:01 Active Medications: Current Medications Povidone Iodine (Povidone Iodine 5 % Oph Soln 30 Ml Bottle) 1 appl EYE-RIGHT PREOP PRN PRN Reason: Pre-Op Surgical Implant Prophy Home Medications ?Medication ?Instructions ?Recorded ?Confirmed ?Last Taken ?Type albuterol sulfate 90 mcg/actuation 2 puff inhalation BID PRN 09/20/24 09/20/24 Unknown History aerosol inhaler Shortness Of Breath Or Wheezing alprazolam 1 mg tablet 1 mg PO BID 09/20/24 09/20/24 Unknown History apixaban 5 mg tablet (Eliquis) 5 mg PO BID 09/20/24 09/20/24 Unknown History diltiazem HCl 180 mg 180 mg PO DAILY 09/20/24 09/20/24 Unknown History capsule,extended release 24 hr flecainide 100 mg tablet 100 mg PO BID 09/20/24 09/20/24 Unknown History fluticasone propionate 50 2 spray intranasal DAILY 09/20/24 09/20/24 Unknown History mcg/actuation nasal spray,suspension (Flonase Allergy Relief) furosemide 40 mg tablet 40 mg PO DAILY 09/20/24 09/20/24 Unknown History gabapentin 600 mg tablet 600 mg PO BID 09/20/24 09/20/24 Unknown History oxycodone-acetaminophen 5 mg-325 1 tab PO QID PRN Pain 09/20/24 09/20/24 Unknown History mg tablet potassium chloride 10 mEq 10 meq PO DAILY 09/20/24 09/20/24 Unknown History capsule,extended release pravastatin 40 mg tablet 40 mg PO DAILY 09/20/24 09/20/24 Unknown History Exam Height,Weight and Vital Signs: Height 5 ft 3 in Weight 78.471 kg Airway Mallampati Class: III TM Dist: >3cm Neck ROM: Full Heart: RRR Lungs: CTA Assessment and Plan Assessment Anesthesia Assessment: Anesthesia Plan Discussed Final Anesthetic Review Family History of Problems with Anesthesia: No History of Problems with Anesthesia: No NPO: Yes ASA Class: II Final Preanesthetic Review: Meds/Allgs Chart Reviewed, Consent Obtained/Reviewed and Anes Risks/Benef Reviewed Patient Risk: Low Procedure Risk: Low Anesthetic Plan Anesthetic Plan: MAC: Disposition: Standard PACU
[2024-09-25] MEDS: Tetracaine HCl/PF 0.5% Oph Sol 4 ML DROPS 1 DROP EYE-RIGHT (09:00)
[2024-09-25] MEDS: Lactated Ringers 500 ML 50 ML IV (09:00)
[2024-09-25] MEDS: Tropicamide 1 % Ophth Sol 3 ML BTL 1 DROP EYE-RIGHT ×3 (09:01→09:05)
[2024-09-25] MEDS: Cyclopentolate 1 % Ophth Sol 2 ML DRPBTL 1 DROP EYE-RIGHT ×3 (09:01→09:05)
[2024-09-25] MEDS: Phenylephrine HCL 2.5% Oph SoL 2 ML BOTTLE 1 DROP EYE-RIGHT ×4 (09:02→09:06)
[2024-09-25 09:10] VITALS: BP 130/63; PULSE 60; RESP 14; TEMP 36.6; O2SAT 95
--- NOTE | 2024-09-25 09:22 | P.PCNO_ITS ---
Ophthalmology Procedure Procedure Date of Service: 09/25/24 Ophthalmology Viscoelastic: Healon Duet Dual Pack Pro Ophthalmology Lenses: IOL Acrysof MP - [id number] (21) Procedure Notes: PREOPERATIVE DIAGNOSIS: Decreased visual acuity right eye secondary to cataract POSTOPERATIVE DIAGNOSIS: Same PROCEDURE: Right cataract extraction with intraocular lens insertion SURGEON: Esa Hassan M.D. ANESTHESIA: Topical/MAC ESTIMATED BLOOD LOSS: None COMPLICATIONS: None After obtaining informed consent, the patient was brought to the operating room suite and placed in the supine position. After adequate sedation per anesthesia, topical drops of Tetracaine were given to the right eye. The eye was then prepped and draped in the usual sterile fashion. The operating room microscope was then positioned over the operative eye and a lid speculum placed. A paracentesis was created. Viscoelastic was then instilled into the anterior chamber. A three plane incision was then created temporally, utilizing a 2.85 mm keratome. Capsulotomy forceps were then utilized to create a circular tear capsulotomy. Hydrodissection and hydrodelineation were carried out until adequate mobilization of the nucleus occurred. Phacoemulsification was then utilized to remove the dense central nucl eus followed by removal of the cortical material utilizing the automated aspiration irrigation unit. Viscoelastic was instilled into the posterior capsular bag followed by placement of a posterior chamber intraocular lens without difficulty. The residual Viscoelastic was then removed utilizing the automated IA machine. The wound was checked and found to be watertight. The patient tolerated the procedure well and the lid speculum was removed. Intracameral injection of Vigamox 0.1 mL followed by a subtenon injection of Kenalog-40 0.2 mL were administered. The patient will be seen in the a.m.
--- NOTE | 2024-09-25 09:22 | MHC.SHP ---
Pre-Procedural Eval Section A - 24 Hr Update-Section A only Date of Service: 09/25/24 The patient is an INPATIENT: No Changes since office visit: No Cold of Flu in the past 2 weeks, No New Medical Problems, No Changes in Medication and No Patient answered all questions The patient has been examined within 24 hours of the surgical procedure. The History & Physical has been completed within 30 days and I have reviewed it.: Yes Section B - Complete if H&P > 30 days Chief Complaint: Age-related nuclear cataract, right eye Allergies: Allergies Allergy/AdvReac Type Severity Reaction Status Date / Time NSAIDS (Non-Steroidal Allergy Severe Unresponsiv Verified 09/20/24 14:01 Anti-Inflamma e Sulfa (Sulfonamide Allergy Severe Rash Verified 09/20/24 14:01 Antibiotics) pumpkins Allergy Severe Rash Uncoded 09/20/24 14:01 strawberries Allergy Severe Anaphylaxis Uncoded 09/20/24 14:01 Plan Diagnosis/Plan: Unchanged I have reviewed the history and physical and performed a pertinent physical examination on my patient. No changes have occurred unless specified. Time Spent With Patient Time: Total time managing care of this patient today ____ minutes.
[2024-09-25 09:50] VITALS: BP 113/57; PULSE 63; RESP 16; TEMP 36.9; O2SAT 97
[2024-09-25 09:53] VITALS: BP 122/61; PULSE 60; RESP 16; TEMP 36.9; O2SAT 97
--- NOTE | 2024-09-25 10:26 | HO.POSTANES ---
Post Anesthesia Evaluation Post Anesthesia Evaluation Date of Service: 09/25/24 Vital Signs: Vital Signs Temp Pulse Resp BP Pulse Ox O2 Del Method 09/25/24 09:53 98.5 F 60 16 122/61 97 Room Air 09/25/24 09:50 98.5 F 63 16 113/57 L 97 Room Air 09/25/24 09:10 97.9 F 60 14 130/63 95 Room Air Anesthesia: Monitored Mental Status: Awake Pain Control: Satisfactory Nausea/Vomiting: None Hydration: Adequate Anesthesia-Related Issues: No Anes. Related Issues
== END 2024-09-25 10:10 | disposition home or self-care (01) ==
PROVIDERS: PCP Internal Medicine; Visit Provider Ophthalmology
PROC: (CPT 66985; principal; 2024-09-25 10:00)
DX: H25.11 Age-related nuclear cataract, right eye (principal); H52.4 Presbyopia; H40.033 Anatomical narrow angle, bilateral; H43.393 Other vitreous opacities, bilateral; H18.413 Arcus senilis, bilateral; H35.09 Other intraretinal microvascular abnormalities; I10 Essential (primary) hypertension; E07.9 Disorder of thyroid, unspecified; I48.91 Unspecified atrial fibrillation; Z95.0 Presence of cardiac pacemaker; Z79.01 Long term (current) use of anticoagulants; Z79.899 Other long term (current) drug therapy; Z96.651 Presence of right artificial knee joint; Z96.642 Presence of left artificial hip joint; Z88.2 Allergy status to sulfonamides; Z88.5 Allergy status to narcotic agent; Z88.6 Allergy status to analgesic agent; Z88.8 Allergy status to other drugs, medicaments and biological substances; Z91.018 Allergy to other foods; F17.210 Nicotine dependence, cigarettes, uncomplicated
CPT/HCPCS: 66984; J2250; J3301; V2630

== ENCOUNTER 2024-10-09 08:18 | Day surgery (SDC) | payer OTHER, SELFPAY ==
--- OUTSIDE RECORDS SUMMARY | 2024-08-21 14:38 | XMS_ITS | Encounter Summary ---
Author Organization [facility] Address [address] [facility] [address] [place] [address] Phone Care Team Providers Care Manager Research Development Name Role Phone Clara Corrales MD Primary Care Provider Encounter Details Date Type Department Care Team (Late st Contact Info) Description 06/15/2022 Telephone [facility] [address] [facility] [address] [place] [address] Betsey Sherman MA Social History [...] contrast doen. Please advise Thank you CB# [phone] documented in this encounter Plan of Treatment Upcoming Encounters Date Type Department Care Team (Late st Contact Info) Description 12/21/2024 1:00 PM EDT Office Visit [facility] [address] [place] [address] Lenin Monique MD [address] [facility] [address] [place] [address] documented as of this encounter Visit Diagnoses Not on filedocumented in this encounter Care Teams Manager Research Development Relationship Specialty Start Date End Date Clara Corrales MD 75 [facility] [address] [place] [address] PCP - General Internal Medicine 06/17/23 documented as of this encounter
--- OUTSIDE RECORDS SUMMARY | 2024-08-21 14:38 | XMS_ITS | Data Portability ---
Author Organization [facility] Address [address] [place] [phone] Care Team Providers Care Licensed Life And Health Agent Name Role Phone HIM CCA OTHER Assessment Encounter Date Assessment Date Assessment LastModified by Organization Details LastModified Time 08/09/2022 08/09/2022 I have reviewed and agree with the assessment and plan as documented by the water operator. I provided real-time medical direction for this [...] assessment and plan as documented by the water operator. I provided real-time medical direction for this [...] Assessment and Plan as documented by the Manager Home Healthcare. Patient given the opportunity to ask questions. Our service contacted for an assessment of: Pain after fall As per above, patient with recurrent falls and now has whole-body pain in addition to the pain she experienced after the fall on her left side. Can ambulate after the fall and has no deficit. Is unable to take nonsteroidals and Toradol. Already taking Tylenol. Per water operator on the scene, vital signs are stable [...] Orders prednisone 20 mg tablet 2022 023 [facility][id number], [address] [place], [place], [id number], 3 21:14:12 benzonatate 200 mg capsule 2022 023 [facility] #[id number], [address] [place], [place], [id number], 3 16:04:43 Robitussin ER 30 mg/5 mL oral suspension, extended release 2022 023 [facility] #[id number], [address] [place], [place], [id number], 3 16:46:56 Patient TargetsNo targets recorded. Patient [...] /min 97.8 [degF] 97 % 97 % 98531.3 76 g 160.02 cm 115 mm[Hg] 77 mm[Hg] Not Available [employer] 4 17:18:05 Date Recorded Heart rate Body weight Respiratory rate Oxygen saturation Oxygen saturation in Arterial blood by Pulse oximetry Body height Body temperature Systolic blood pressure Diastolic blood pressure Provider Name and Address Organization Details Last Updated DateTime 4 76 /min 21441.6 4 g 16 /min 96 % 96 % 160.02 cm 98.1 [degF] 140 mm[Hg] 80 mm[Hg] Not Available [employer] [facility] [employer] 4 21:24:10 Date Recorded Heart rate Respiratory rate Oxygen saturation Oxygen saturation in Arterial blood by Pulse oximetry Body temperature Systolic blood pressure Diastolic blood pressure Provider Name and Address Organization Details Last Updated DateTime 2 63 /min 18 /min 96 % 96 % 98.6 [degF] 114 mm[Hg] 62 mm[Hg] Not Available [employer] - production 2 19:53:01 Date Recorded Respiratory rate Body temperature Oxygen saturation Oxygen saturation in Arterial blood by Pulse oximetry Heart rate Systolic blood pressure Diastolic blood pressure Provider Name and Address Organization Details Last Updated DateTime 3 18 /min 99 [degF] 98 % 98 % 88 /min 141 mm[Hg] 76 mm[Hg] Not Available [employer] - production 3 15:52:54 Date Recorded Oxygen [...] mm[Hg] 145 mm[Hg] 76 mm[Hg] Not Available [employer] [facility] [employer] 3 21:08:30 Social History None recorded. Functional [...] 4592 Leah Louis MD Main - [facility] [address] [place] [phone] 01/29/2022 19:52:52 01/30/2022 12:56:48 Palpitations 21615097 R00.2 71y F with a fib and recent discharge 01/18 for a fib presenting w intermitte nt palpitatio ns that started earlier today. VSS including during an episode of perceived palpitatio ns. EKG shows mildly prolonged OH but patient being paced. No associated concerning [...] 7535 Brandy Martinez MD Main - [facility] [address] [place] [phone] 05/23/2022 15:52:52 05/25/2022 12:29:14 Acute viral bronchitis 133880821 J20.8 Pt endorsing 6-7 days of productive [...] assessment and plan as documented by the water operator. I provided real time medical direction for this encounter and was immediatel y available to provide additional phone based assistance as needed. 9715 Tori Sarabia MD Main - [facility] [address] [place] [phone] 08/09/2022 21:02:38 08/11/2022 10:12:33 Cough 35539558 R05.9 16913 Tori Sarabia MD Main - [facility] [address] [place] [phone] 05/02/2023 17:17:55 05/03/2023 17:40:03 Viral upper respiratory tract infection [id number] J06.9 58659 Blanca Guzman MD Main - [facility] [address] [place] [phone] 10/11/2023 21:24:05 10/11/2023 21:40:52 Pain 34821965 R52 Fall W19.XXXA Health Concerns Section Related Observation LastModified by Organization Detai ls LastModified Time None Recorded Concern Status LastModified by Organization Details LastModified Time None Recorded Advance Directives Directive None Recorded Payers Encounter Date Sequence Insurance Name Policy Number Policy Ricardo Covered Member ID Ricardo Member ID Guarantor Name 01/29/2022 1 [facility] [employer] - DOS PRIOR TO 2022 - DUAL ELIGIBLE (MEDICARE REPLACEMENT/ADV ANTAGE - HMO) Huong Yissel [id number] Huong Yissel 05/23/2022 1 [facility] [employer] - DOS PRIOR TO 2022 - DUAL ELIGIBLE (MEDICARE REPLACEMENT/ADV ANTAGE - HMO) Huong Yissel [id number] Huong Yissel 08/09/2022 1 [facility] [employer] - DOS PRIOR TO 2022 - DUAL ELIGIBLE (MEDICARE REPLACEMENT/ADV ANTAGE - HMO) Huong Yissel [id number] Huong Yissel 05/02/2023 1 [facility] [employer] - DOS ON OR AFTER 2022 - DUAL ELIGIBLE - INTERMEDIATE OPTIONS AND ONE CARE (MEDICARE REPLACEMENT/ADV ANTAGE - HMO) Huong Yissel [id number] Huong Yissel 10/11/2023 1 [facility] - DOS ON OR AFTER 2022 - DUAL ELIGIBLE - INTERMEDIATE OPTIONS AND ONE CARE (MEDICARE REPLACEMENT/ADV ANTAGE - HMO) Huong Yissel [id number] Huong Yissel Notes Date Note Type Note [...] PCP is 02/06 Leah Louis MD [address] [facility],[address], [place], [phone], [email or web address] 01/29/2022 20:04:11 05/23/2022 text/html CRC Nursing Assessment: Chief Complaints: Cough PMH: Heart Disease Allergies: Unknown Comments: Pt reports feeling unwell x3 days - Productive cough and headache -Body aches - Denies fever and chills, Denies SOB/CP, Denies N/V .................. .................. .................. .................. .................. .................. .................. ............... Manager Home Healthcare Note From Karen Jimenez: Pt found garcia [...] ............... Disposition: Fulfilled Brandy Martinez MD [address] [facility],[address], [place], [phone], [employer] 05/23/2022 16:46:54 08/09/2022 text/html CRC Nursing Assessment: Patient Reports: Cough, fever greater than 2 days ; History of asthma, increased use of inhaler Chief Complaints: Cough, URI, UTI/Pyelonephritis PMH: Heart Disease Comments: Member calling to request [facility] visit for eval URI symptoms x 2 weeks states recent Rx with abx, inhalers and cough med without relief Deny fever/chills. Also concern for dysuria 4 days. Verify member name/- Tori Sarabia MD [address] [place] [address],[address], [place], [phone], [employer] 08/09/2022 21:14:19 05/02/2023 text/html CRC Nurse Triage [...] .................. .................. .................. .................. .................. .................. ............... Manager Home Healthcare Note From Yayo Gutierrez: Pt reports almost [...] .................. .................. ............... Disposition: Miles Sarabia MD [address] [place] [address],[address], [place], [phone], [employer] 05/02/2023 17:22:15 10/11/2023 text/html CRC Nurse Triage [...] .................. .................. .................. .................. .................. .................. ............... Manager Home Healthcare Note From Yunior Cotto: Insted note 72 [...] .................. ............... Disposition: Miles Guzman MD [address] [facility],[address], [place], [phone], [employer] 10/11/2023 21:27:07 OBGyn Episode No OBEpisode recorded.
--- OUTSIDE RECORDS SUMMARY | 2024-08-21 14:38 | XMS_ITS | Clinical Summary ---
Author Organization [facility] Address [address] [place] [address] Phone Care Team Providers Care Glazing Department Supervisor Name Role Phone Clara Corrales MD Primary [...] strawberries and pumpkin-rash and throat swells. pumpkin [place] (Diagnostic) 01/07/2023 Other reaction(s): rash and throat [...] [facility] [address] [place] [address] Lenin Monique MD [address] [phone] Health Maintenance Due Date Last Done Comments [...] patient's age to complete this topic Insurance [facility] ([id number]) [facility] ([id number]) Care Teams Glazing Department Supervisor Relationship Specialty Start Date End Date Clara Corrales MD [address] [place] [phone] PCP - General Internal Medicine 06/17/23
[2024-10-04 14:00] VITALS: BMI 30.9
[2024-10-09 09:53] VITALS: BP 124/62; PULSE 59; RESP 16; TEMP 36.1; O2SAT 97
[2024-10-09] MEDS: Tetracaine HCl/PF 0.5% Oph Sol 4 ML DROPS 1 DROP EYE-LEFT (10:01)
[2024-10-09] MEDS: Cyclopentolate 1 % Ophth Sol 2 ML DRPBTL 1 DROP EYE-LEFT ×3 (10:02→10:14)
[2024-10-09] MEDS: Ketorolac Tromethamine 0.5% Op 5 ML DROPS 1 DROP EYE-LEFT ×3 (10:03→10:15)
[2024-10-09] MEDS: Tropicamide 1 % Ophth Sol 3 ML BTL 1 DROP EYE-LEFT ×3 (10:03→10:14)
[2024-10-09] MEDS: Phenylephrine HCL 2.5% Oph SoL 2 ML BOTTLE 1 DROP EYE-LEFT ×3 (10:05→10:16)
[2024-10-09] MEDS: Lactated Ringers 500 ML 50 ML IV (10:06)
--- NOTE | 2024-10-09 10:51 | MHC.SHP ---
Pre-Procedural Eval Section A - 24 Hr Update-Section A only Date of Service: 10/09/24 The patient is an INPATIENT: No Changes since office visit: No Cold of Flu in the past 2 weeks, No New Medical Problems, No Changes in Medication and No Patient answered all questions The patient has been examined within 24 hours of the surgical procedure. The History & Physical has been completed within 30 days and I have reviewed it.: Yes Section B - Complete if H&P > 30 days Chief Complaint: Age-related nuclear cataract, left eye Allergies: Allergies Allergy/AdvReac Type Severity Reaction Status Date / Time NSAIDS (Non-Steroidal Allergy Severe Unknown Verified 10/09/24 09:47 Anti-Inflamma Sulfa (Sulfonamide Allergy Severe Rash Verified 09/20/24 14:01 Antibiotics) pumpkins Allergy Severe Rash Uncoded 09/20/24 14:01 strawberries Allergy Severe Anaphylaxis Uncoded 09/20/24 14:01 Plan Diagnosis/Plan: Unchanged I have reviewed the history and physical and performed a pertinent physical examination on my patient. No changes have occurred unless specified. Time Spent With Patient Time: Total time managing care of this patient today ____ minutes.
--- NOTE | 2024-10-09 10:52 | HO.ANESPROP2 ---
[facility] Active Problems Active Problems: All Active Problems Chronic SI joint pain (Acute) Past Medical History Medical History History of cardioversion Chronic low back pain Neck pain HLD (hyperlipidemia) RLS (restless legs syndrome) Smoker Anxiety Cataracts, bilateral A-fib Hx of cardiac pacemaker (~2012) Family History Family history of problems with anesthesia: No Surgical History Surgical History (Updated 10/04/24 @ 13:58 by Racheal Antunez, GILDA) Hx of right cataract extraction (09/25/24) Hx of spinal surgery History of total right knee replacement (TKR) History of total left hip replacement History of total replacement of left shoulder joint Hx of colonoscopy History of Problems with Anesthesia: No Social History Social History Are you a primary healthcare market consultant to a significant other at home: No Do you presently have visiting nurse or other home services: Yes (NETWORK SUPPORT MANAGER 3 x week total of 9.5 hours) Patient Tobacco Use Status: Current everyday Tobacco user Tobacco use type: Cigarette Cigarettes Per Day: 5 Advance Directives: No Advance Directives Information Provided: Yes Meds Allergies Allergy/AdvReac Type Severity Reaction Status Date / Time NSAIDS (Non-Steroidal Allergy Severe Unknown Verified 10/09/24 09:47 Anti-Inflamma Sulfa (Sulfonamide Allergy Severe Rash Verified 09/20/24 14:01 Antibiotics) pumpkins Allergy Severe Rash Uncoded 09/20/24 14:01 strawberries Allergy Severe Anaphylaxis Uncoded 09/20/24 14:01 Active Medications: Current Medications Lactated Ringer's (Lr) 500 mls @ 50 mls/hr IV .Q10H CARMENZA Stop: 10/09/24 19:59 Last Admin: 10/09/24 10:06 Dose: 50 mls/hr Naloxone HCl (Naloxone Hcl 0.4 Mg/Ml Vial) 0.04 mg IVPUSH Q5M PRN PRN Reason: Excessive sedation or RR < 8 Povidone Iodine (Povidone Iodine 5 % Ophth Soln 30 Ml Bottle) 1 appl EYE-LEFT PREOP PRN PRN Reason: Pre-Op Surgical Implant Prophy Home Medications ?Medication ?Instructions ?Recorded ?Confirmed ?Last Taken ?Type albuterol sulfate 90 mcg/actuation 2 puff inhalation BID PRN 09/20/24 09/25/24 09/25/24 History aerosol inhaler Shortness Of Breath Or Wheezing alprazolam 1 mg tablet 1 mg PO BID 09/20/24 09/25/24 10/09/24 History apixaban 5 mg tablet (Eliquis) 5 mg PO BID 09/20/24 09/20/24 Unknown History diltiazem HCl 180 mg 180 mg PO DAILY 09/20/24 09/25/24 10/09/24 History capsule,extended release 24 hr flecainide 100 mg tablet 100 mg PO BID 09/20/24 09/25/24 10/09/24 History fluticasone propionate 50 2 spray intranasal DAILY 09/20/24 09/20/24 Unknown History mcg/actuation nasal spray,suspension (Flonase Allergy Relief) furosemide 40 mg tablet 40 mg PO DAILY 09/20/24 09/20/24 10/09/24 History gabapentin 600 mg tablet 600 mg PO BID 09/20/24 09/20/24 10/09/24 History oxycodone-acetaminophen 5 mg-325 1 tab PO QID PRN Pain 09/20/24 09/20/24 Unknown History mg tablet potassium chloride 10 mEq 10 meq PO DAILY 09/20/24 09/20/24 10/09/24 History capsule,extended release pravastatin 40 mg tablet 40 mg PO DAILY 09/20/24 09/25/24 09/25/24 History Exam Height,Weight and Vital Signs: Height 5 ft 2.99 in Weight 79 kg Last Vital Signs Temp 97 F 10/09/24 09:53 Pulse 59 10/09/24 09:53 Resp 16 10/09/24 09:53 BP 124/62 10/09/24 09:53 Pulse Ox 97 10/09/24 09:53 O2 Del Method Room Air 10/09/24 09:53 Airway Mallampati Class: II TM Dist: >3cm Neck ROM: Full Heart: rrr Lungs: cta Assessment and Plan Assessment Anesthesia Assessment: Anesthesia Plan Discussed and Chart Reviewed Final Anesthetic Review Family History of Problems with Anesthesia: No History of Problems with Anesthesia: No NPO: Yes ASA Class: III Final Preanesthetic Review: No Changes in Pt Med Stat, Meds/Allgs Chart Reviewed and Consent Obtained/Reviewed Patient Risk: Low Procedure Risk: Low Anesthetic Plan Anesthetic Plan: MAC: Disposition: Standard PACU
--- NOTE | 2024-10-09 10:58 | HO.PNOPHT ---
Ophthalmology Procedure Procedure Date of Service: 10/09/24 Ophthalmology Viscoelastic: Healon Duet Dual Pack Pro Ophthalmology Lenses: IOL Acrysof MP - [id number] (21.5) Procedure Notes: PREOPERATIVE DIAGNOSIS: Decreased visual acuity left eye secondary to cataract POSTOPERATIVE DIAGNOSIS: Same PROCEDURE: Left cataract extraction with intraocular lens insertion SURGEON: Esa Hassan M.D. ANESTHESIA: Topical/MAC ESTIMATED BLOOD LOSS: None COMPLICATIONS: None After obtaining informed consent, the patient was brought to the operation room suite and placed in the supine position. After adequate sedation per anesthesia, topical drops of Tetracaine were given to the left eye. The eye was then prepped and draped in the usual sterile fashion. The operating room microscope was then positioned over the operative eye and a lid speculum placed. A paracentesis was created. Viscoelastic was then instilled into the anterior chamber. A three plane incision was then created temporally, utilizing a 2.85 mm keratome. Capsulotomy forceps were then utilized to create a circular tear capsulotomy. Hydrodissection and hydrodelineation were carried out until adequate mobilization of the nucleus occurred. Phacoemulsification was then utilized to remove the dense central nucleus followed by removal of the cortical material utilizing the automated aspiration irrigation unit. Viscoat elastic was instilled into the posterior capsular bag followed by placement of a posterior chamber intraocular lens without difficulty. The residual Viscoat elastic was then removed utilizing the automated IA machine. The wound was check and found to be watertight. The patient tolerated the procedure well and the lid speculum was removed. Intracameral injection of Vigamox 0.1 mL followed by a subtenon injection of Kenalog-40 0.2 mL were administered. The patient will be seen in the a.m.
[2024-10-09 11:15] VITALS: BP 132/59; PULSE 60; RESP 16; TEMP 36.6; O2SAT 100
== END 2024-10-09 11:51 | disposition home or self-care (01) ==
PROVIDERS: PCP Internal Medicine; Visit Provider Ophthalmology
PROC: (CPT 66985; principal; 2024-10-09 11:30)
DX: H25.12 Age-related nuclear cataract, left eye (principal); H52.4 Presbyopia; H40.033 Anatomical narrow angle, bilateral; H43.393 Other vitreous opacities, bilateral; H18.413 Arcus senilis, bilateral; H35.09 Other intraretinal microvascular abnormalities; I10 Essential (primary) hypertension; I48.91 Unspecified atrial fibrillation; Z95.0 Presence of cardiac pacemaker; E07.89 Other specified disorders of thyroid; N28.9 Disorder of kidney and ureter, unspecified; M48.00 Spinal stenosis, site unspecified; Z96.651 Presence of right artificial knee joint; Z96.642 Presence of left artificial hip joint; Z79.01 Long term (current) use of anticoagulants; Z79.899 Other long term (current) drug therapy; Z88.2 Allergy status to sulfonamides; Z88.5 Allergy status to narcotic agent; Z88.8 Allergy status to other drugs, medicaments and biological substances; Z91.041 Radiographic dye allergy status; F17.210 Nicotine dependence, cigarettes, uncomplicated
CPT/HCPCS: 66984; J2250; J3301; V2630

== ENCOUNTER 2024-11-09 09:02 | Emergency (ER) | payer OTHER, SELFPAY ==
--- NOTE | ~2024-11-09 | XR_ITS ---
EXAMINATION: XR CHEST CLINICAL INFORMATION: shortness of breath COMPARISON: None available. TECHNIQUE: Frontal view of the chest was obtained. FINDINGS: Left-sided atrioventricular pacer with leads in place the right atrium and right ventricle. The cardiac, hilar, and mediastinal contours are normal. Aortic mural calcification. The lungs demonstrate mild nonspecific prominence of the background bronchovascular interstitial markings. Lungs otherwise clear. No pneumothorax or effusion. No focal osseous or soft tissue abnormality. XR/XR chest 1V IMPRESSION: 1. Atrioventricular pacemaker. 2. No definite active pulmonary disease. Electronically signed by: Pranav Reynolds MD 11/09/2024 10:01 AM EDT
--- NOTE | 2024-11-09 09:15 | ECG_ITS ---
Test Reason : palpitations Blood Pressure : */* mmHG Vent. Rate : 89 BPM Atrial Rate : * BPM P-R Int : * ms QRS Dur : 144 ms QT Int : 416 ms P-R-T Axes : * 126 2 degrees QTcB Int : 506 ms Atrial fibrillation with occasional ventricular-paced complexes Right bundle branch block Abnormal ECG No previous ECGs available Referred By: Reinaldo Rajan Electronically Signed By: Shoaib Bernard
[2024-11-09 09:22] VITALS: BP 107/54; BP 112/73; PULSE 80; PULSE 87; RESP 16; TEMP 36.7; O2SAT 93; BMI 32.2
--- NOTE | 2024-11-09 09:29 | ED.GENADULT ---
HPI - General Adult General Chief complaint: Arrhythmia/Palpitations Stated complaint: palpitations, afib Time Seen by Provider: 11/09/24 09:05 Source: patient, RN notes reviewed and old records reviewed Mode of arrival: EMS Limitations: no limitations History of Present Illness ED Provider: Mohini HPI narrative: 73-year-old female with a past medical history significant for atrial fibrillation maintained on Eliquis, hypertension, pacemaker placement, goiter status post resection, anxiety, chronic kidney disease presenting for evaluation of palpitations. Patient follows Cardiology at a [facility] facility with Dr. Kaveh Spangler. She reports that she has discussed a cardiac ablation but that has not yet scheduled She reports for the last few weeks she has had increasing shortness of breath and palpitations She denies any sharp chest pain Denies any leg swelling. She reports that she has been compliant with her medications Her symptoms tend to be worse with exertion Related Data Home Medications ?Medication ?Instructions ?Recorded ?Confirmed albuterol sulfate 90 mcg/actuation 2 puff inhalation BID PRN 09/20/24 09/25/24 aerosol inhaler Shortness Of Breath Or Wheezing alprazolam 1 mg tablet 1 mg PO BID 09/20/24 09/25/24 apixaban 5 mg tablet (Eliquis) 5 mg PO BID 09/20/24 09/20/24 diltiazem HCl 180 mg 180 mg PO DAILY 09/20/24 09/25/24 capsule,extended release 24 hr flecainide 100 mg tablet 100 mg PO BID 09/20/24 09/25/24 fluticasone propionate 50 2 spray intranasal DAILY 09/20/24 09/20/24 mcg/actuation nasal spray,suspension (Flonase Allergy Relief) furosemide 40 mg tablet 40 mg PO DAILY 09/20/24 09/20/24 gabapentin 600 mg tablet 600 mg PO BID 09/20/24 09/20/24 oxycodone-acetaminophen 5 mg-325 1 tab PO QID PRN Pain 09/20/24 09/20/24 mg tablet potassium chloride 10 mEq 10 meq PO DAILY 09/20/24 09/20/24 capsule,extended release pravastatin 40 mg tablet 40 mg PO DAILY 09/20/24 09/25/24 Allergies Allergy/AdvReac Type Severity Reaction Status Date / Time NSAIDS (Non-Steroidal Allergy Severe Unknown Verified 11/09/24 09:25 Anti-Inflamma Sulfa (Sulfonamide Allergy Severe Rash Verified 11/09/24 09:25 Antibiotics) pumpkins Allergy Severe Rash Uncoded 09/20/24 14:01 strawberries Allergy Severe Anaphylaxis Uncoded 09/20/24 14:01 Review of Systems Constitutional: Constitutional: Denies chills, Denies fever(s) and Denies headache(s) Eyes: Eyes: Denies blurry vision ENT: Denies vertigo and Denies headache(s) Cardiovascular: Cardiovascular: Denies chest pain, Reports rapid heart rate, Reports palpitations and Denies dyspnea on exertion Respiratory: Respiratory: Denies cough and Denies dyspnea on exertion Gastrointestinal: Gastrointestinal: Denies abdominal pain, Denies nausea and Denies vomiting Musculoskeletal: Musculoskeletal: Denies back pain Integumentary/Breasts: Skin/Breast: Denies rash Neurologic: Denies vertigo and Denies headache(s) Endocrine: Endocrine: Reports palpitations PMFSH Past Medical History Medical History (Updated 11/09/24 @ 12:30 by Reinaldo Rajan) History of cardioversion Chronic low back pain Neck pain HLD (hyperlipidemia) RLS (restless legs syndrome) Smoker Anxiety Cataracts, bilateral A-fib Hx of cardiac pacemaker (~2012) Surgical History (Updated 10/04/24 @ 13:58 by Racheal Antunez RN) Hx of right cataract extraction (09/25/24) Hx of spinal surgery History of total right knee replacement (TKR) History of total left hip replacement History of total replacement of left shoulder joint Hx of colonoscopy Social History Social History Are you a primary weekend caregiver to a significant other at home: No Do you presently have visiting nurse or other home services: Yes (SOLE BLACKER 3 x week total of 9.5 hours) Patient Tobacco Use Status: Current everyday Tobacco user Tobacco use type: Cigarette Cigarettes Per Day: 5 Smoked in Last 30 Days: Yes Use of substances other than those prescribed or required for medical reasons: No Advance Directives: No Advance Directives Information Provided: Yes Physical Exam ED Vital Signs: Vital Signs - 24 hr 11/09/24 09:22 11/09/24 10:05 11/09/24 11:19 Temperature 98.0 F 98.1 F Pulse Rate 87 82 Pulse Rate [Monitor] 83 Respiratory Rate 16 16 Blood Pressure 112/73 105/52 L Pulse Oximetry 93 96 Oxygen Delivery Method Room Air Room Air BMI result Body Mass Index 32.2 Const General: healthy appearing, comfortable, no acute distress, alert and awake Nutritional Appearance: well nourished Orientation/consciousness: patient oriented x3 HENMT Head: Yes normocephalic and Yes atraumatic Eyes Eyelids: Yes eyelids normal Conjunctivae: conjunctivae normal Sclerae: sclerae normal Corneas: corneas normal Pupils: Equal, round and reactive pupils present EOM: EOMs intact bilaterally Neck Neck: Yes full ROM Resp Effort & Inspection: normal respiratory effort, able to speak in complete sentences, no audible wheezes and not labored Auscultation: clear to auscultation bilaterally Cardio Rhythm: abnormal rhythm irregularly irregular GI Inspection: No distended Palpation (GI): Soft to palpation, not firm, nontender, no guarding and not rigid Skin General skin exam: elasticity normal Neuro General: patient oriented x3 Cranial nerves: Yes Equal, round and reactive pupils present and Yes Bilaterally intact EOM present Cognition (Neuro): normal cognition Extrem Other: Moving all extremities well without any obvious deformities Medical Decision Making Medical Decision Making MDM Narrative: 73-year-old female with a past medical history as described above presents for evaluation of intermittent shortness of breath and palpitations. She does have a longstanding history of atrial fibrillation requiring previous cardioversion per her report. On arrival to the ED she appears quite comfortable, heart rate is 80-100 and appears to be an AFib, EKG is ordered. Labs are pending including BNP, troponin, TSH. We will also obtain chest x-ray. His vital signs are currently within normal limits. Differential Diagnosis Differential Diagnoses: The differential diagnosis associated with the presentation includes Atrial fibrillation CHF Cardiac arrhythmia ACS less likely Fluid overload Admission/Observation Consideration of admission/observation: Escalation of care including admission/observation considered The patient was considered for admission due to palpitations with AFib. However she is rate controlled with stable vital signs. Consult Healthcare Provider Management of the patient was discussed with: [employer] ([facility], Dr. Kaveh Spangler) Lab Data MDM Lab Attestation statement: I reviewed the patient's lab results. No leukocytosis or anemia. Normal platelet count. No electrolyte abnormalities. Troponin within normal limits. 11/09/24 10:00 11/09/24 10:00 Labs: Lab Results 11/09/24 Range/Units 10:00 WBC 9.4 (4.8-10.8) X10*3/uL RBC 4.60 (4.20-5.50) X10*6/uL Hgb 14.2 (12.0-16.0) g/dl Hct 43.1 (37.0-47.0) % MCV 93.7 (80.0-98.0) fL MCH 30.9 (27.0-33.0) pg MCHC 32.9 (31.0-35.0) g/dl RDW 13.5 (11.0-16.0) % Plt Count 211 (160-400) X10*3/uL MPV 9.4 (9.4-12.3) fL Immature Gran % (Auto) 0.3 (0.0-0.4) % Neut % (Auto) 66.7 (45-73) % Lymph % (Auto) 25.8 (20-40) % [place] % (Auto) 5.5 (2-11) % Eos % (Auto) 1.3 (0-4) % Baso % (Auto) 0.4 (0-2) % Lymph # (Auto) 2.4 (1.2-4.9) X10*3/uL [place] # (Auto) 0.5 (0.1-1.2) X10*3/uL Eos # (Auto) 0.1 (0.0-0.4) X10*3/uL Baso # (Auto) 0.0 (0.0-0.2) X10*3/uL Abs Immat Gran (auto) 0.03 (0.00-0.03) X10*3/uL Absolute Neuts (auto) 6.2 (2.0-8.3) x10*3/uL Absolute Nucleated RBC 0.000 (0.0-0.012) X10*3/uL Nucleated RBC % (auto) 0.0 (0.0-0.2) /100WBC Hold Blue Top SEE NOTE Sodium 142 (135-145) mmol/L Potassium 3.7 (3.3-5.1) mmol/L Chloride 106 (96-108) mmol/L Carbon Dioxide 28 (22-29) mmol/L Anion Gap 12 (12-20) BUN 15 (9-16) mg/dL Creatinine 0.93 (0.5-1.4) mg/dL Estim Creat Clear Calc 54.7 Estimated GFR 59 Random Glucose 85 (60-115) mg/dL Calcium 9.2 (8.4-10.2) mg/dL Magnesium 2.2 (1.6-2.6) mg/dL Total Bilirubin 0.4 (0.0-1.0) mg/dL AST 19 (5-31) U/L ALT 16 (0-31) U/L Alkaline Phosphatase 86 (39-117) U/L Troponin I High Sens < 2.7 (<3.5-17.0) ng/L B-Natriuretic Peptide 83 (<100) pg/mL Total Protein 6.7 (6.5-8.0) g/dL Albumin 4.0 (3.5-5.0) g/dL TSH 1.57 (0.32-4.0) uIU/mL Urine Color Yellow Urine Appearance Clear Urine pH 7.5 (5.0-9.0) Ur Specific [place] <= 1.005 (1.005-1.025) Urine Protein Negative (Neg-Trace) mg/dL Urine Glucose (UA) Negative (Negative) mg/dL Urine Ketones Negative (Negative) mg/dL Urine Blood Negative (Negative) Urine Nitrite Negative (Negative) Ur Leukocyte Esterase Negative (Negative) Urine RBC 0-2 (0-2) /HPF Urine WBC 0-5 (0-5) /HPF Ur Squamous Epith Cells 0-2 (0-2) /HPF Urine Bacteria None Seen (None Seen) Hyaline Casts 0-2 (0-2) /LPF Influenza Type A (PCR) NEGATIVE (Negative) Influenza Type B (PCR) NEGATIVE (Negative) RSV RNA Qual (PCR) NEGATIVE (Negative) SARS-CoV-2 RNA (RT-PCR) NEGATIVE (Negative) Independent Interpretation I performed an independent interpretation of an: EKG (AFib with occasional PVC. Rate of 89 beats minute.) and Plain X-Ray Interpretation: Agree with Radiology interpretation, no overt congestive heart failure Radiology Impression Discussion of test interpretation with radiology: I have reviewed the radiologist's reading. Radiologist Impression: FINDINGS: Left-sided atrioventricular pacer with leads in place the right atrium and right ventricle. The cardiac, hilar, and mediastinal contours are normal. Aortic mural calcification. The lungs demonstrate mild nonspecific prominence of the background bronchovascular interstitial markings. Lungs otherwise clear. No pneumothorax or effusion. No focal osseous or soft tissue abnormality. XR/XR chest 1V IMPRESSION: 1. Atrioventricular pacemaker. 2. No definite active pulmonary disease. Electronically signed by: Pranav Reynolds MD 11/09/2024 10:01 AM EDT RP Discharge Plan Discharge Clinical Impression: Palpitations, Atrial fibrillation Patient Disposition: Home, Self-Care Instructions: A-fib (Atrial Fibrillation) (ED) Additional Instructions: You are in atrial fibrillation, but UR rate controlled. You should not make any changes to your medications. I spoke to your doctor, Dr. Kaveh Spangler and he will try to get you in to expedite your ablation that is planned. I recommend calling on Wednesday if you do not hear today or tomorrow Return for new or worsening symptoms Prescriptions: No Action furosemide 40 mg tablet 40 mg PO DAILY potassium chloride 10 mEq capsule, extended release 10 meq PO DAILY gabapentin 600 mg tablet 600 mg PO BID pravastatin 40 mg tablet 40 mg PO DAILY diltiazem HCl 180 mg capsule,extended release 24hr 180 mg PO DAILY alprazolam 1 mg tablet 1 mg PO BID oxycodone-acetaminophen 5-325 mg tablet 1 tab PO QID PRN (Reason: Pain) flecainide 100 mg tablet 100 mg PO BID albuterol sulfate 90 mcg/actuation HFA aerosol inhaler 2 puff inhalation BID PRN (Reason: Shortness Of Breath Or Wheezing) fluticasone propionate [Flonase Allergy Relief] 50 mcg/actuation [place],Suspension 2 spray INTRANASAL DAILY Rx Instructions: administer into each nostril Eliquis 5 mg Tablet 5 mg PO BID Print Language: Khmer
--- NOTE | 2024-11-09 09:40 | MHC.EDTECH ---
EKG Completed 932 by [facility] EDT. Signed by Salma BENDER
[2024-11-09 10:05] VITALS: PULSE 83
[2024-11-09 10:07] LABS: MANUAL DIFF FLAG NO
[2024-11-09 10:09] LABS: Hematocrit 43.1 % (37.0-47.0); Hemoglobin 14.2 g/dl (12.0-16.0); Imm Gran Abs Auto 0.03 X10*3/uL (0.00-0.03); Imm Gran Pct Auto 0.3 % (0.0-0.4); Lymphocytes Absolute Auto 2.4 X10*3/uL (1.2-4.9); Mean Corpuscular HGB Conc 32.9 g/dl (31.0-35.0); Mean Corpuscular Hemoglobin 30.9 pg (27.0-33.0); Mean Corpuscular Volume 93.7 fL (80.0-98.0); NRBC Abs Auto 0.000 X10*3/uL (0.0-0.012); NRBC Pct Auto 0.0 /100WBC (0.0-0.2); Platelet Count 211 X10*3/uL (160-400); Red Blood Count 4.60 X10*6/uL (4.20-5.50); White Blood Count 9.4 X10*3/uL (4.8-10.8)
[2024-11-09 10:11] LABS: Appearance Urine Clear; Glucose Urine UA Negative (Negative); PH 7.5 (5.0-9.0); Specific Gravity - Urine <= 1.005 (1.005-1.025)
--- OUTSIDE RECORDS SUMMARY | 2024-11-09 10:12 | XMS_ITS | Clinical Summary ---
Author Organization [facility] Address [address] [place] [address] Phone Care Team Providers Care Welder First Class Name Role Phone Clara Corrales MD Primary Care Provider [phone] Allergies Active Allergy Reactions Criticality Noted Date Comments Iodinated Contrast Media 01/07/2023 Other reaction(s): has kidney disease so cant take contrast dye Patient has kidney disease and dual pacemaker Metoprolol 01/07/2023 Other reaction(s): rash Nsaids 01/07/2023 Other reaction(s): cannot take because of kidney disease Other 01/07/2023 Other reaction(s): allergic to strawberries and pumpkin-rash and throat swells. pumpkin Collbran (Diagnostic) 01/07/2023 Other reaction(s): rash and throat [...] Smoker 09/12/2020 Vitamin D deficiency 09/12/2020 Stroke Encounters Date Type Department Care Team Description 10/24/2024 Orders Only [facility] [address] [phone] Lenin Monique MD Chronic kidney disease stage 2; Hypertensive renal disease; Hypo-osmolality and hyponatremia; Isolated proteinuria from Last 3 Months Immunizations Immunization Administration Dates Next Due Pneumococcal [...] Care Team (Late st Contact Info) Description 12/28/2024 1:45 PM EDT Office Visit [facility] [address] [place] [phone] Lenin Monique MD [address] [phone] Health Maintenance Due Date Last Done Comments Breast Cancer Screening 1950 Colorectal Cancer Screening: Annual FOBT 11/13/1999 Colorectal Cancer Screening: Colonoscopy 11/13/1999 Colorectal Cancer Screening: Sigmoidoscopy 11/13/1999 Pneumococcal Vaccine: 50+ Ye ars (2 of 2 - PCV) 06/16/2014 06/16/2013 Influenza Vaccine (#1) 2024 Pneumococcal Vaccine: Peds ( 0 to 5 Years) and At-Risk Patients (6 to 49 Years) Discontinued 06/16/2013 Hepatitis B Vaccine Aged Out No longe r eligible based on patient's age to complete this topic Insurance [facility] ([id number]) [facility] ([id number]) Care Teams Welder First Class Relationship Specialty Start Date End Date Clara Corrales MD [address] [place] [address] [address] [place] [phone] PCP - General Internal Medicine 06/17/23
--- OUTSIDE RECORDS SUMMARY | 2024-11-09 10:13 | XMS_ITS | Data Portability ---
Author Organization [facility] Address [address] [place] [phone] Care Team Providers Care Timber Management Technician Name Role Phone HIM CCA OTHER Assessment Encounter Date Assessment Date Assessment LastModified by Organization Details LastModified Time 08/09/2022 08/09/2022 I have reviewed and agree with the assessment and plan as documented by the wood machinist. I provided real-time medical direction for this [...] assessment and plan as documented by the wood machinist. I provided real-time medical direction for this [...] Assessment and Plan as documented by the Vocational Guidance Counselor. Patient given the opportunity to ask questions. Our service contacted for an assessment of: Pain after fall As per above, patient with recurrent falls and now has whole-body pain in addition to the pain she experienced after the fall on her left side. Can ambulate after the fall and has no deficit. Is unable to take nonsteroidals and Toradol. Already taking Tylenol. Per wood machinist on the scene, vital signs are stable [...] mental status [email or web address] Not available 10/11/2023 21:26:54 08/22/2024 08/22/2024 As noted, we wer e called to see this patient regarding concerns of dizziness. Evaluation in the field was performed by my wood machinist colleague, as noted above, I provided real-time direction and supervision for this visit. Patient states that she's been having dizziness on and off. She describes the dizziness as a spinning sensation that suddenly starts and goes away after a few seconds. She states that it is related to head movement and position changes. She states that she did have vertigo many years ago and just feel similar. Patient also states that she's been nauseous. She denies any vomiting. She did state that she had one episode of diarrhea that she describes a soft stool without water or blood. Patient denies any fevers, runny nose, shortness of breath, chest pain. Labs reviewed and are not actionable. Her glucose is hundred 19. EKG doesn't reveal any skimming findings. COVID and flu are negative. Patient states that she was told she has earwax by her PCP. Tympanic membranes are clear bilaterally. There is currently no earwax. Patient doesn't appear dehydrated as wood machinist. She also has a history of CHF. 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 Patient states that she has had meclizine in the past for similar symptoms. Patient was advised that with meclizine she cannot drive as it will make her sleepy. Patient is agreeable to starting meclizine and Zofran for symptoms. She feels comfortable to call us back for evaluation if her symptoms do not improve. Impression: Peripheral vertigo Plan: Follow-up with PCP Primary care, consider CT head Disposition: We discussed the diagnostic uncertainty of home visits and the risk associated with this. In this case, the patient and I felt this to be an acceptable and reasonable amount of risk given the benefit of avoiding an ED visit. We discussed the need to seek care urgently/emergentl y in the setting of any new or worsening serious symptoms, particularly Chest pain, shortness of breath, loss of consciousness. [email or web address] Not available 08/22/2024 16:22:46 Plan of Treatment Reminders Order Date Submit Date Provider Last Modified By Organization Details Last Modified Time Details Appointments None recorded. Lab BMP, serum or plasma [address], [id number] 16:40:43 rapid SARS CoV 2 Ag, QL IA, respiratory specimen [address], [id number] 16:40:44 rapid flu (A+B) [address], [id number] 16:40:44 Referral None recorded. Procedures None recorded. Surgeries None recorded. Imaging electrocard iogram [address], [id number] 20:50:47 Medication Orders meclizine 12.5 mg tablet 2024 [id number], [address], [place], [place], [id number], 15:51:37 ondansetron 4 mg disintegrat ing tablet 2024 025 [facility], [address], [place], [id number], 5 15:51:38 meclizine 25 mg tablet [address] [facility]42557, [address], [place], [id number], 5 15:51:29 ondansetron 4 mg disintegrat ing tablet [address] [facility]56948, [address], [place], [id number], 5 15:51:29 prednisone 20 mg tablet 2022 023 [facility], [address], [place], [id number], 3 21:14:12 benzonatate 200 mg capsule 2022 023 [facility], [address], [place], [id number], 3 16:04:43 Robitussin ER 30 mg/5 mL oral suspension, extended release 2022 023 [facility]20, [address], [place], [id number], 3 16:46:56 Patient TargetsNo targets recorded. Patient InstructionsNo instructions recorded. Reason for Referral None Reported. Results Created Date Observation Date Name Description Value Unit Range Abnormal Flag Note LastModifiedBy Organization Detail LastModifiedTime 08/23/19 25 08/22/2024 shaista man am No observ ation record ed. [facility] [address] [place] [address], [id number] 08/22/2024 16:41:22 Result Notes None recorded. Medical Equipment None Reported. Allergies Allergen ID [...] active Not Available Not Available Not Available gabapentin 600 mg tablet active Not Available Not Available Not Available nicotine 14 mg/24 hr daily transdermal patch active Not Available Not Available Not Available pravastatin 40 mg tablet active Not Available Not Available Not Available diltiazem CD 180 mg capsule,exte nded release 24 hr active Not Available Not Available Not Available alprazolam 1 mg tablet active Not Available Not Available No t Available benzonatate 200 mg capsule Take 1 capsule every 8 hours as needed for cough 2022 active Not Available Not Available Not Avai lable hydrocodone 5 mg-acetamino phen 325 mg tablet active Not Available Not Available Not Available prednisone 20 mg tablet Take 3 tablets every day by oral route for 5 days. active Not Available Not Available No t Available meclizine 12.5 mg tablet Take 1 tablet 3 times a day by oral route as needed for 5 days, for vertigo. 2024 active Not Available Not Available Not Avai lable oxycodone-ac etaminophen 5 mg-325 mg tablet active Not Available Not Available Not Available amoxicillin 875 mg tablet active Not Available Not Available Not Available trazodone 100 mg tablet active Not Available Not Available Not Available ropinirole 0.25 mg tablet active Not Available Not Available Not Available Ear Wax Removal Drops 6.5 % active Not Available Not Available Not Available baclofen 10 mg tablet active Not Available Not Available No t Available cephalexin 500 mg capsule active Not Available Not Available Not Available ropinirole 0.5 mg tablet active Not Available Not Available Not Available losartan 25 mg tablet active Not Available Not Available No t Available flecainide 100 mg tablet active Not Available Not Available Not Available omeprazole 20 mg capsule,alexsander yed release active Not Available Not Available Not Available aspirin 81 mg chewable tablet active Not Available Not Available Not Available diltiazem CD 120 mg capsule,exte nded release 24 hr active Not Available Not Available Not Available methylpredni solone 4 mg tablets in a dose pack active Not Available Not Available No t Available albuterol sulfate HFA 90 mcg/actuatio n aerosol inhaler active Not Available Not Available Not Available losartan 50 mg-hydrochlo rothiazide 12.5 mg tablet active Not Available Not Available Not Available ondansetron 4 mg disintegrati ng tablet Place 1 tablet twice a day by translingua l route as needed for 3 days, for nausea. 2024 active Not Available Not Available Not Avai lable fluticasone propionate 50 mcg/actuatio n nasal spray,suspen suraj active Not Available Not Available Not Available loratadine 10 mg tablet active Not Available Not Available Not Available amoxicillin 875 mg-potassium clavulanate 125 mg tablet active Not Available Not Available Not Available oxycodone 5 mg tablet TAKE 1 TABLET BY MOUTH EVERY 6 HOURS NEEDED FOR SEVERE PAIN active Not Available Not Available Not Available cholecalcife rol (vitamin D3) 25 mcg (1,000 unit) capsule active Not Available Not Available Not Available fenofibrate 160 mg tablet active Not Available Not Available Not Available pregabalin 75 mg capsule active Not Available Not Available Not Available diclofenac 1 % topical gel active Not Available Not Available Not Available Stimulant Laxative Plus 8.6 mg-50 mg tablet active Not Available Not Available Not Available Robitussin ER 30 mg/5 mL oral suspension,e xtended release Take 10 mL by mouth every 12 hours as needed for cough 2022 active Not Available Not Available Not Avai lable BinaxNOW COVID-19 Ag Self Test kit active Not Available Not Available Not Available Vitals Date Recorded Respiratory rate Heart rate Body temperature Oxygen saturation Oxygen saturation in Arterial blood by Pulse oximetry Body weight Body height Systolic And Diastolic Provider Name and Address Organization Details Last Updated DateTime 4 16 /min 74 /min 97.8 [degF] 97 % 97 % 93850.3 76 g 160.02 cm 115/77 mm[Hg] Not Available [facility] - production 4 17:18:05 Date Recorded Respiratory rate Body temperature Oxygen saturation Oxygen saturation in Arterial blood by Pulse oximetry Heart rate Systolic And Diastolic Provider Name and Address Organization Details Last Updated DateTime 3 18 /min 99 [degF] 98 % 98 % 88 /min 141/76 mm[Hg] Not Available [facility] 3 15:52:54 Date Recorded Oxygen saturation Oxygen saturation in Arterial blood by Pulse oximetry Heart rate Body temperature Respiratory rate Respiratory rate Heart rate Oxygen saturation Oxygen saturation in Arterial blood by Pulse oximetry Body temperature Systolic And Diastolic Systolic And Diastolic Provider Name and Address Organization Details Last Updated DateTime 3 96 % 96 % 61 /min 98 [degF] 18 /min 18 /min 61 /min 96 % 96 % 98 [degF] 145/76 mm[Hg] 145/76 mm[Hg] Not Available [facility] 3 21:08:30 Date Recorded Oxygen saturation Oxygen saturation in Arterial blood by Pulse oximetry Body temperature Respiratory rate Heart rate Systolic And Diastolic Systolic And Diastolic Provider Name and Address Organization Details Last Updated DateTime 5 97 % 97 % 97.7 [degF] 16 /min 60 /min 102/72 mm[Hg] 90/62 mm[Hg] Not Available [employer] [employer] 5 15:12:35 Date Recorded Heart rate Body weight Respiratory rate Oxygen saturation Oxygen saturation in Arterial blood by Pulse oximetry Body height Body temperature Systolic And Diastolic Provider Name and Address Organization Details Last Updated DateTime 4 76 /min 88001.6 4 g 16 /min 96 % 96 % 160.02 cm 98.1 [degF] 140/80 mm[Hg] Not Available [employer] [employer] 4 21:24:10 Social History None recorded. Functional Status None [...] [id number] Leah Louis MD [facility] [address] [place] [phone] 01/29/2022 19:52:52 01/30/2022 12:56:48 Palpitations 17280955 R00.2 71y F with a fib and recent discharge 01/18 for a fib presenting w intermitte nt palpitatio ns that started earlier today. VSS including during an episode of perceived palpitatio ns. EKG shows mildly prolonged WI but patient being paced. No associated concerning [...] [id number] Brandy Martinez MD Main [facility] [address] [place] [phone] 05/23/2022 15:52:52 05/25/2022 12:29:14 Acute viral bronchitis 079368641 J20.8 Pt endorsing 6-7 days of productive [...] assessment and plan as documented by the wood machinist. I provided real time medical direction for this encounter and was immediatel y available to provide additional phone based assistance as needed. [id number] Tori Sarabia MD [facility] [address] [place] [phone] 08/09/2022 21:02:38 08/11/2022 10:12:33 Cough [id number] R05.9 [id number] Tori Sarabia MD [facility] [address] [place] [phone] 05/02/2023 17:17:55 05/03/2023 17:40:03 Viral upper respiratory tract infection [id number] J06.9 [id number] Blanca Guzman MD [facility] [address] [place] [phone] 10/11/2023 21:24:10/11/2023 21:40:52 Pain 92451474 R52 Fall W19.XXXA [id number] Dale Steele MD Main - [address] [phone] 08/22/2024 15:12:33 08/22/2024 19:46:59 Peripheral vertigo 56215701 H81.399 Health Concerns Section Related Observation LastModified by Organization Detai ls LastModified Time None Recorded Concern Status LastModified by Organization Details LastModified Time None Recorded Advance Directives Directive None Recorded Payers Insurance Date Sequence Insurance Name Policy Number Policy Ricardo Covered Member ID Ricardo Member ID Guarantor Name 08/22/2024 1 [facility] - DOS PRIOR TO 2022 - DUAL ELIGIBLE (MEDICARE REPLACEMENT/ADV ANTAGE - HMO) Huong Dey [id number] Huong Dey 08/22/2024 1 [facility] - DOS ON OR AFTER 2022 - DUAL ELIGIBLE - GROUP HOME OPTIONS AND ONE CARE (MEDICARE REPLACEMENT/ADV ANTAGE - HMO) Huong Dey [id number] Huong Dey Notes Date Note Type Note Provider Name and Address Organization Details Recorded Time 05/23/2022 text/html [facility] Nursing Assessment: Chief Complaints: Cough PMH: Heart Disease Allergies: Unknown Comments: Pt reports feeling unwell x3 days - Productive cough and headache -Body aches - Denies fever and chills, Denies SOB/CP, Denies N/V .................... .................... .................... .................... .................... .................... .................... . Vocational Guidance Counselor Note From Karen Jimenez: Pt found garcia [...] if symptoms last for 3-4 more days. .................... .................... .................... .................... .................... .................... .................... . Disposition: Fulfilled Brandy Martinez MD [address] [place] [address],[address], [place], [phone], [facility] 05/23/2022 16:46:54 08/09/2022 text/html [facility] Nursing Assessment: Patient Reports: Cough, fever greater than 2 days ; History of asthma, increased use of inhaler Chief Complaints: Cough, URI, UTI/Pyelonephritis PMH: Heart Disease Comments: Member calling to request [facility] visit for eval URI symptoms x 2 weeks states recent Rx with abx, inhalers and cough med without relief Deny fever/chills. Also concern for dysuria 4 days. Verify member name/- Tori Sarabia MD [address] [facility],[address], [place], [phone], [facility] 08/09/2022 21:14:19 05/02/2023 text/html [facility] Nurse Triage [...] pacemaker/afib ( eliquis) High Chol/ Kidney dis .................... .................... .................... .................... .................... .................... .................... . Vocational Guidance Counselor Note From Yayo Gutierrez: Pt reports almost [...] and saline nasal spray throughout the day. .................... .................... .................... .................... .................... .................... .................... . Disposition: Fulfilled Tori Sarabia MD [address] [place] [address],[address], [place], [phone], [facility] Andres KlusterDILLANViki BROOKLYNN 05/02/2023 17:22:15 10/11/2023 text/html CRC Nurse Triage [...] Reporting decreased ROM to left arm.Liban VO .................... .................... .................... .................... .................... .................... .................... . Vocational Guidance Counselor Note From Yunior Cotto: Jacque note 72 year old with PMH: HTN, [...] to walk slower because of it. MD Consult:Unfortunatel y, due to pt's allergies, and/or renal disease, we are unable to Rx anything for the pn.MD advised keeping Wed's appointment and if pain worsened or pt needs pain relief to seek care from urgent care or ER.Discussed red flags with pt. .................... .................... .................... .................... .................... .................... .................... . Disposition: Miles Guzman MD [address] [facility],[address], [place], [phone], [employer] [facility] [employer] 10/11/2023 21:27:07 08/22/2024 text/html ROS as noted in the HPI HPI: Member reports she hasnt been feeling well for past few days. She accidently ate a piece of squash and initially attributed it to that. She reports still not feeling well with some dizziness, nausea and just unwell. Member reports being concerned about it being an elevated sugar but doesnt have a known dx of diabetes. Requesting a visit to check on her .................... .................... .................... .................... .................... .................... .................... . [facility] Nurse Triage Notes (Tonya Cox): Reason For Request: Dizziness Chief Complaints: Dizziness, Nausea / Vomiting, Rash PMH: Coronary Artery Disease, Hypertension, Congestive Heart Failure PMH Reviewed at 08/22/2024:25 Allergies Reviewed at 08/22/2024:25 Comments: CRC RN did not require any additional information to process this visit. Vocational Guidance Counselor Organization [facility] Legal Name: [facility] Address: [address] [place] [address], [place] [address], Waste Picker: Pradip Dumont MD CLIA No.: [id number] Vocational Guidance Counselor POC Test Results from Yayo Gutierrez [facility] (15:18:06) pH: 7.37 pH units pCO2: 55.3 mmHg pO2: 17.3 mmHg Na: 144 mmol/L K: 3.9 mmol/L iCa: 1.27 mmol/L Cl: 101 mmol/L TCO2: 31.4 mEq/L Hct: 48 % Hb: 16.3 g/dL Glu: 119 mg/dL Lac: 0.74 mmol/L Cr: 0.93 mg/dL BUN: 17 mg/dL A mmol/L HCO3: 32.1 mmol/L EKG (15:26:49) EKG test performed. Attachments uploaded as part of this test result can be found under Documents section. Rapid COVID antigen (16:05:20) COVID: - Rapid influenza antigen (16:05:21) Flu: - .................... .................... .................... .................... .................... .................... .................... . Vocational Guidance Counselor Note From Yayo Gutierrez: This 73-year-old female with a history including but not limited to HTN, HLD, CAD, CHF, atrial fibrillation, osteoporosis requested a visit today to address two weeks of dizziness with position changes. Patient states over the weekend he ate food she was allergic to and had two episodes of diarrhea. Patient denies any chest pain, shortness of breath, dyspnea on exertion, vision changes, headaches, fevers, vomiting. Patient takes 40 mg of furosemide daily. Patient states she drinks three bottles of water a day. Patient presents awake and alert, in no acute distress and speaking full sentences. She is mildly hypotensive and borderline orthostatic, vital signs are otherwise reasonably stable and she is afebrile. Nonfocal neurological exam. Normal gait. Unremarkable ear exam. Lungs are clear throughout auscultation. Abdomen is soft, nontender, nondistended. No lower extremity edema. Unremarkable POC labs are uploaded. EKG is uploaded, RBBB. Rapid COVID and flu testing are both negative. I treated with ondansetron 4 mg ODT and meclizine 25 mg. We discussed the diagnostic uncertainty of home visits and the risk associated with this. In this case, the patient and I felt this to be an acceptable and reasonable amount of risk given the benefit of avoiding an ED visit. I provided education on the patient's prescriptions. I recommend the patient increase her oral hydration and follow-up with her PCP this week. I instructed her to present to the emergency department for any new or worsening severe symptoms such as chest pain, shortness of breath, severe headache, uncontrolled nausea/vomiting, high fever, altered mental status. The patient was given the opportunity to ask questions and is agreeable to this plan. [facility] Lab Orders: BMP, serum or plasma: Performed rapid SARS CoV 2 Ag, QL IA, respiratory specimen: Performed rapid flu (A+B): Performed [facility] Medication Orders: ondansetron 4 mg disintegrating tablet: Administered .................... .................... .................... .................... .................... .................... .................... . [facility] Consulted: Dale Steele .................... .................... .................... .................... .................... .................... .................... . Disposition: Fulfilled Dale Steele MD [address] [facility],[address], [place], [address], [employer]BROOKLYNN GRIMALDO 08/22/2024 16:25:33 OBGyn Episode No OBEpisode recorded.
[2024-11-09 10:28] LABS: B Type Natriuretic Peptide 83 pg/mL (<100)
[2024-11-09 10:30] LABS: Alanine Aminotransferase 16 U/L (0-31); Albumin Level 4.0 g/dL (3.5-5.0); Alkaline Phosphatase 86 U/L (39-117); Anion Gap 12 (12-20); Aspartate Amino Transferase 19 U/L (5-31); Blood Urea Nitrogen 15 mg/dL (9-16); Calcium 9.2 mg/dL (8.4-10.2); Carbon Dioxide 28 mmol/L (22-29); Chloride 106 mmol/L (96-108); Creatinine Clr Calc Pharmacy 54.7; Estimated Glomerular Filt Rate 59; Magnesium 2.2 mg/dL (1.6-2.6); Potassium 3.7 mmol/L (3.3-5.1); Sodium 142 mmol/L (135-145); Total Protein 6.7 g/dL (6.5-8.0)
[2024-11-09 10:32] LABS: Troponin-I High Sensitivity < 2.7 ng/L (<3.5-17.0)
--- NOTE | 2024-11-09 10:41 | PC.NURSE ---
Addendum entered by Kay Phan RN 11/09/24 10:44: Patient is a 73-year-old female with a past medical history significant for atrial fibrillation maintained on Eliquis, hypertension, pacemaker placement, goiter status post resection, anxiety, chronic kidney disease presenting for evaluation of palpitations. Patient follows Cardiology at a [facility] facility with Dr. Kaveh Spangler. She reports that she has discussed a cardiac ablation but that has not yet scheduled She reports for the last few weeks she has had increasing shortness of breath and palpitations She denies any sharp chest pain. Alert and oriented. Placed on the equipment monitor phototypesetting and afib with a BBB with a rate of 80's to 90's. Lungs coarse. Positive smoker. Respirations even and non-labored. Abdomen soft, distended, non-tender with positive bowel sounds. Positive pedal pulses with no edema. Original Note: Medical History History of cardioversion Chronic low back pain Neck pain HLD (hyperlipidemia) RLS (restless legs syndrome) Smoker Anxiety Cataracts, bilateral A-fib Hx of cardiac pacemaker (~2012)
[2024-11-09 10:53] LABS: Resp Syncy Virus RNA Qual PCR NEGATIVE (Negative); SARS COV2 PCR INHOUSE NEGATIVE (Negative)
[2024-11-09 11:19] VITALS: BP 105/52; PULSE 82; RESP 16; TEMP 36.7; O2SAT 96
[2024-11-09 12:46] VITALS: BP 92/56; PULSE 99; RESP 18; O2SAT 98
[2024-11-09 12:53] VITALS: BP 92/56; PULSE 99; RESP 18; TEMP 36.7; O2SAT 98
== END 2024-11-09 13:00 | disposition home or self-care (01) ==
PROVIDERS: Physician Assistant; Emergency Provider Emergency Medicine; PCP Internal Medicine
DX: R00.2 Palpitations (principal); I48.91 Unspecified atrial fibrillation; I10 Essential (primary) hypertension; Z72.0 Tobacco use; Z79.01 Long term (current) use of anticoagulants; Z95.0 Presence of cardiac pacemaker; Z79.899 Other long term (current) drug therapy
CPT/HCPCS: 36415; 71045; 80053; 81001; 83735; 83880; 84443; 84484; 85025; 87637; 93005; 99283; 99284; 99285

== ENCOUNTER → 2024-11-09 09:15 | Outpatient (BNV) | payer OTHER, SELFPAY | PROVIDERS: Emergency Provider Emergency Medicine; PCP Internal Medicine; Visit Provider Internal Medicine Cardiovascular Disease | DX: I48.91 Unspecified atrial fibrillation (principal); I45.10 Unspecified right bundle-branch block; Z95.0 Presence of cardiac pacemaker | CPT/HCPCS: 93010 ==

== ENCOUNTER → 2024-11-09 09:33 | Outpatient (BNV) | payer OTHER, SELFPAY | PROVIDERS: Emergency Provider Emergency Medicine; PCP Internal Medicine; Visit Provider Radiology Diagnostic Radiology | DX: R06.02 Shortness of breath (principal) | CPT/HCPCS: 71045 ==